=== PATIENT | female | born 1960 | race African-American/Black ===

== ENCOUNTER 2016-10-18 09:32 | Emergency (ER) | payer OTHER, MEDICARE, BC ==
[~2016-10-18] VITALS: Ht 170.2 cm; Wt 86.0 kg
[~2016-10-18 09:32] MED LIST: CALTCHW4 PO; CHOL50006 PO; CYCL-36 PO; DICL50 PO; DOLU1TAB; ENAL2.5 PO; ENAL5TAB98 PO; GLUC10TA3 PO; HYDR-3533 PO; HYDR-3580 PO; LANTUS2P SC; LOTRCRE TOP; MORP1INJ45 PO; PIOG45 PO; TRUV200300; VALT500T OR
[2016-10-18 09:34] VITALS: BP 188/106; PULSE 115; RESP 18; TEMP 98.3; O2SAT 97
[2016-10-18] MEDS ORDERED: LORazepam 2 MG/ML VIAL IV PUSH ONE (09:45)
[2016-10-18] MEDS ORDERED: DIPHTH/TETANUS/ACEL PERTUSSIS (BOOSTER) 0.5 ML VIAL/PFS IM ONE (09:45)
[2016-10-18] MEDS ORDERED: SODIUM CHLORIDE 0.9% FLUSH 5 ML FLUSH IVF PRN (09:45)
[2016-10-18] MEDS ORDERED: MORPHINE SULFATE 4 MG/ML INJ IV ONE (09:45)
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
[2016-10-18] MEDS ORDERED: PERC5TAB12 PO (10:56)
[2016-10-18] MEDS ORDERED: VALA1TAB PO (11:09)
[2016-10-18] MEDS ORDERED: CANA100T PO (11:09)
[2016-10-18] MEDS ORDERED: PIOG45TA3 PO (11:09)
[2016-10-18] MEDS ORDERED: CHOL1TAB16 PO (11:09)
[2016-10-18] MEDS ORDERED: ROSU5 PO (11:09)
[2016-10-18] MEDS ORDERED: ENAL5TAB98 PO (11:09)
[2016-10-18] MEDS ORDERED: CALC1TAB37 PO (11:09)
[2016-10-18] MEDS ORDERED: LANTUS2P SQ (11:09)
[2016-10-18] MEDS ORDERED: GLIP10TA6 PO (11:09)
[2016-10-18] MEDS ORDERED: THERTAB56 PO (11:09)
[2016-10-18] MEDS ORDERED: ELVI1TAB3 PO (11:09)
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
[2016-10-18] MEDS ORDERED: WHEEMIS3 (11:36)
[2016-10-18] MEDS ORDERED: MORPHINE SULFATE 4 MG/ML INJ IV PUSH ONE (12:15)
== END 2016-10-18 14:54 | disposition home or self-care (01) ==
LOC: NEPA 09:32
DX: S92.064A Nondisplaced intraarticular fracture of right calcaneus, initial encounter for closed fracture (principal); S92.325A Nondisplaced fracture of second metatarsal bone, left foot, initial encounter for closed fracture; S92.315A Nondisplaced fracture of first metatarsal bone, left foot, initial encounter for closed fracture; S00.83XA Contusion of other part of head, initial encounter; S00.81XA Abrasion of other part of head, initial encounter; Z79.4 Long term (current) use of insulin; B20 Human immunodeficiency virus [HIV] disease; V43.52XA Car driver injured in collision with other type car in traffic accident, initial encounter; Y93.9 Activity, unspecified; Y92.9 Unspecified place or not applicable; Y99.9 Unspecified external cause status; E11.9 Type 2 diabetes mellitus without complications; I10 Essential (primary) hypertension
CPT/HCPCS: 29515; 70450; 71010; 72125; 73610; 73630; 90471; 90715; 96374; 96375; 96376; 99284; J2060; J2270

== ENCOUNTER 2016-10-25 15:43 | Observation (INO) | payer MEDICARE, BC ==
[~2016-10-25] VITALS: Ht 167.6 cm; Wt 82.0 kg
[~2016-10-25 15:43] MED LIST changes: +CALC1TAB37 PO; -CALTCHW4 PO; +CANA100T PO; +CHOL1TAB16 PO; -CHOL50006 PO; -CYCL-36 PO; -DICL50 PO; -DOLU1TAB; +ELVI1TAB3 PO; -ENAL2.5 PO; +GLIP10TA6 PO; -GLUC10TA3 PO; -HYDR-3533 PO; -HYDR-3580 PO; -LANTUS2P SC; +LANTUS2P SQ; -LOTRCRE TOP; -MORP1INJ45 PO; +PERC5TAB12 PO; -PIOG45 PO; +PIOG45TA3 PO; +ROSU5 PO; +THERTAB56 PO; -TRUV200300; +VALA1TAB PO; -VALT500T OR; +WHEEMIS3
[2016-10-25 15:46] VITALS: BP 138/96; PULSE 92; RESP 20; TEMP 98.4; O2SAT 96
[2016-10-25] MEDS ORDERED: SODIUM CHLORIDE 0.9% FLUSH 5 ML FLUSH IVF PRN (16:00)
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
[2016-10-25 16:43] LABS: AUTOMATED NEUTROPHIL # 2.9 TH/MM3 (1.8-7.7); BASOPHIL % 0.4 % (0.0-2.0); EOSINOPHIL # 0.1 TH/MM3 (0-0.4); EOSINOPHIL % 1.2 % (0.0-4.0); HEMATOCRIT 40.2 % (35.0-46.0); HEMO FLAGS DIFF FINAL; LYMPH % 49.1 % (9.0-44.0); LYMPHOCYTE # 3.3 TH/MM3 (1.0-4.8); MEAN CORPUSCULAR HEMOGLOBIN 30.4 PG (27.0-34.0); MEAN CORPUSCULAR HGB CONC 31.7 % (32.0-36.0); MONO % 5.6 % (0.0-8.0); NEUT % 43.7 % (16.0-70.0); PLATELET COUNT 246 TH/MM3 (150-450); RED BLOOD COUNT 4.19 MIL/MM3 (4.00-5.30); RED CELL DISTRIBUTION WIDTH 14.7 % (11.6-17.2); WHITE BLOOD COUNT 6.7 TH/MM3 (4.0-11.0)
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
[2016-10-25 17:16] LABS: APTT (PATIENT) 23.1 SEC (24.3-30.1); PROTHROMBIN TIME - PATIENT 11.2 SEC (9.8-11.6)
[2016-10-25 17:19] LABS: ANION GAP 9 MEQ/L (5-15); AST (GOT) 45 U/L (15-37); BICARBONATE 26.4 MEQ/L (21.0-32.0); BLOOD UREA NITROGEN 11 MG/DL (7-18); CHLORIDE 104 MEQ/L (98-107); GLOMERULAR FILTRATION RATE 84 ML/MIN (>89); POTASSIUM 4.4 MEQ/L (3.5-5.1); SODIUM (NA) 139 MEQ/L (136-145)
[2016-10-25 17:34] LABS: ALKALINE PHOSPHATASE 77 U/L (45-117); ALT (GPT) 32 U/L (10-53); CREATINE KINASE 1508 U/L (26-192); TOTAL BILIRUBIN ADULT 0.6 MG/DL (0.2-1.0)
[2016-10-25] MEDS ORDERED: HYDROmorphone HCL PF 1 MG/ML VIAL IV PUSH ONE (17:45)
[2016-10-25] MEDS ORDERED: ONDANSETRON HCL 4 MG/2 ML VIAL IV PUSH ONE (17:45)
[2016-10-25 17:47] LABS: CKMB 1.4 NG/ML (0.5-3.6)
[2016-10-25 18:00] VITALS: BP 134/94; PULSE 95; RESP 24; O2SAT 99
[2016-10-25] MEDS ORDERED: IOHEXOL 350 MG/ML 10 ML VIAL (for RAD DIAG) IV ONE (18:01)
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
[2016-10-25] MEDS ORDERED: SODIUM CHLOR 0.9% 1000 ML INJ 1,000 ML IV ONE (18:30)
[2016-10-25 19:08] VITALS: BP 133/74; PULSE 88; RESP 18; O2SAT 94
[2016-10-25 19:09] VITALS: O2SAT 93
[2016-10-25] MEDS ORDERED: NALOXONE HCL 0.4 MG/ML AMP IV PRN (20:00)
[2016-10-25] MEDS ORDERED: SODIUM CHLORIDE 0.9% FLUSH 5 ML FLUSH FLUSH PRN (20:00)
[2016-10-25] MEDS: SODIUM CHLORIDE 0.9% FLUSH 5 ML FLUSH FLUSH SCH (20:47)
[2016-10-25] MEDS: SODIUM CHLOR 0.9% 1000 ML INJ 1,000 ML IV SCH (20:47)
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
[2016-10-26] VITALS (7 sets, daily range): BP systolic 112–128; BP diastolic 65–82; PULSE 84–95; RESP 18–19; TEMP 96.5–98.4; O2SAT 98–100
[2016-10-26] MEDS: ACETAMINOPHEN/CODEINE 300 MG/30 MG TAB PO PRN ×3 (02:59→17:32)
[2016-10-26 07:25] LABS: BICARBONATE 25.9 MEQ/L (21.0-32.0); POTASSIUM 4.4 MEQ/L (3.5-5.1)
[2016-10-26 07:52] LABS: CKMB 0.7 NG/ML (0.5-3.6)
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
[2016-10-26] MEDS: SODIUM CHLORIDE 0.9% FLUSH 5 ML FLUSH FLUSH SCH ×2 (09:00→20:36)
[2016-10-26] MEDS: ENOXAPARIN SODIUM 40 MG/0.4 ML SYRINGE SQ SCH (09:23)
[2016-10-26] MEDS: SODIUM CHLOR 0.9% 1000 ML INJ 1,000 ML IV SCH ×2 (09:25→14:44)
--- NOTE | 2016-10-26 15:32 | EKG ---
Date Performed: 10/25/2016 Time Performed: 15:42:59 PTAGE: 56 years EKG: SINUS TACHYCARDIA BASELINE ARTIFACT ABNORMAL RHYTHM ECG PREVIOUS TRACING 07/26/2016 12.33.44 Compared to previous tracing, the patient is now tachycar dic. DOCTOR: Haley Dukes Interpretating Date/Time 10/26/2016 15:31:41
[2016-10-26] MEDS ORDERED: DEXTROSE 50% IN WATER 50 ML VIAL(D50) IV PUSH PRN (16:30)
[2016-10-26] MEDS ORDERED: GLUCAGON 1 MG/ML VIAL OTHER PRN (16:30)
[2016-10-26] MEDS ORDERED: ERGOCALCIFEROL (VIT D2) 50,000 UNIT CAP PO SCH (17:00)
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
[2016-10-26] MEDS: CALCIUM/VITAMIN D 250 MG/125 U TAB PO SCH (20:36)
[2016-10-26] MEDS: INSULIN NovoLIN REGULAR SUPPLEMENTAL SCALE SQ SCH (20:37)
[2016-10-26] MEDS ORDERED: CALCIUM/VITAMIN D 250 MG/125 U TAB PO SCH (21:00)
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
[2016-10-27 00:22] VITALS: BP 109/70; PULSE 83; RESP 20; TEMP 97.4; O2SAT 100
[2016-10-27] MEDS: SODIUM CHLOR 0.9% 1000 ML INJ 1,000 ML IV SCH ×2 (01:59→11:12)
[2016-10-27 03:56] VITALS: BP 132/75; PULSE 88; RESP 20; TEMP 98; O2SAT 100
[2016-10-27] MEDS: INSULIN NovoLIN REGULAR SUPPLEMENTAL SCALE SQ SCH ×2 (06:33→11:12)
[2016-10-27 07:39] VITALS: BP 119/71; PULSE 87; RESP 18; TEMP 98.4; O2SAT 99
[2016-10-27] MEDS ORDERED: [UNRECOGNIZED DRUG - OTHER] PO SCH (09:00)
[2016-10-27] MEDS ORDERED: ENALAPRIL MALEATE 5 MG TAB PO SCH (09:00)
[2016-10-27] MEDS ORDERED: ATORVASTATIN 10 MG TAB PO SCH (09:00)
[2016-10-27] MEDS: SODIUM CHLORIDE 0.9% FLUSH 5 ML FLUSH FLUSH SCH (09:00)
[2016-10-27] MEDS: ENOXAPARIN SODIUM 40 MG/0.4 ML SYRINGE SQ SCH (09:52)
[2016-10-27 10:23] VITALS: PULSE 100
[2016-10-27] MEDS: CALCIUM/VITAMIN D 250 MG/125 U TAB PO SCH (11:12)
[2016-10-27 11:34] VITALS: BP 135/98; PULSE 81; RESP 22; TEMP 98.2; O2SAT 100
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
[2016-10-27] MEDS ORDERED: MUCI600T PO (13:19)
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
--- NOTE | 2016-10-27 13:24 | HHI.FF ---
Face to Face Verification Diagnosis: (1) Rhabdomyolysis (2) Chest pain (3) Metatarsal fracture (4) Calcaneal fracture (5) Fracture of second metatarsal bone of left foot Physical Therapy Order: Evaluate and Treat, Improve ambulation, Strength and gait training Home Health Nursing Order: Medical education Signs/symptoms of disease process Diabetic education Medication education-adverse effect Nursing assessment with vital signs I have seen patient Candis Hernandez on 10/27/16. My clinical findings support the need for the requested home health care services because: Ltd mobility - disease progression Deconditioned w/ increased weakness High risk of falls I certify that my clinical findings support that this patient is homebound because: Unsteady gait/balance Unsafe to leave home unassisted [id number] bed/chair Brian Vallejo MD Oct 27, 2016 13:24
== END 2016-10-27 15:35 | disposition home or self-care (01) ==
LOC: NEPC 15:43 → NEDA 18:52 → NEPHCDU 21:36
PROVIDERS: ADMIT Internal Medicine; ATTEND Internal Medicine
DX: R07.9 Chest pain, unspecified (principal); M62.82 Rhabdomyolysis; R06.09 Other forms of dyspnea; R05 Cough; R06.02 Shortness of breath; E11.9 Type 2 diabetes mellitus without complications; I10 Essential (primary) hypertension; Z79.4 Long term (current) use of insulin; Z79.899 Other long term (current) drug therapy; C85.90 Non-Hodgkin lymphoma, unspecified, unspecified site; E78.5 Hyperlipidemia, unspecified; S92.322D Displaced fracture of second metatarsal bone, left foot, subsequent encounter for fracture with routine healing; S92.332D Displaced fracture of third metatarsal bone, left foot, subsequent encounter for fracture with routine healing; S92.001D Unspecified fracture of right calcaneus, subsequent encounter for fracture with routine healing; R00.0 Tachycardia, unspecified
CPT/HCPCS: 71010; 71275; 73700; 80048; 80053; 82550; 82552; 82948; 84484; 85025; 85379; 85610; 85730; 93005; 96374; 99285; G0378; J1170; J1650; J2405; J7030; Q9967

== ENCOUNTER 2017-01-30 22:31 | Emergency (ER) | payer MEDICARE, BC ==
[~2017-01-30] VITALS: Ht 180.3 cm; Wt 84.0 kg
[~2017-01-30 22:31] MED LIST changes: +MUCI600T PO; -VALA1TAB PO
[2017-01-30 22:33] VITALS: BP 168/100; PULSE 93; RESP 16; TEMP 98.5; O2SAT 100
--- NOTE | 2017-01-30 23:49 | PD ---
HPI Chief Complaint: ENT Complaint Time Seen by Provider: 23:45 Travel History International Travel<30 days: No Contact w/Intl Traveler<30days: No Traveled to known affect area: No History of Present Illness HPI Patient is a 56-year-old female presenting to emergency for evaluation of muffled hearing in her right ear. Patient states 2 weeks ago she used a Q-tip, since that time she's had pressure and muffled hearing. She denies any headaches, dizziness, nausea. She has no other complaints at this time. PFSH Past Medical History Cancer: Yes Cardiovascular Problems: Yes Chemotherapy: Yes Diabetes: Yes Patient Takes Glucophage: Yes Endocrine: Yes Glaucoma: No Genitourinary: No Hepatitis: No Hiatal Hernia: No Hypertension: Yes Immune Disorder: No Musculoskeletal: Yes (perla. LE fx.) Neurologic: No Psychiatric: No Reproductive: No Respiratory: No Thyroid Disease: No Tetanus Vaccination: < 5 Years ?: Not Menopausal: Yes Past Surgical History Abdominal Surgery: No AICD: No Cardiac Surgery: No Ear Surgery: No Endocrine Surgery: No Eye Surgery: No Genitourinary Surgery: No Gynecologic Surgery: No Joint Replacement: No Oral Surgery: No Pacemaker: No Thoracic Surgery: No Other Surgery: Yes (INSERTION INFUSAPORT) Social History Alcohol Use: Yes (WINE RARELY) Tobacco Use: No Substance Use: No Allergies-Medications (Allergen,Severity, Reaction): Coded Allergies: Penicillin (Verified Allergy, Severe, Itching, 01/30/17) itch and rash Vancomycin (Verified Adverse Reaction, Intermediate, Itching, 01/30/17) Reported Meds & Prescriptions Reported Meds & Active Scripts Active Mucinex ER 12 HR (Guaifenesin) 600 Mg Ewelina 600 Mg PO BID PRN Wheelchair Elevated Leg (Device) 1 Mis Mis 1 Ea .ROUTE DIRECTED Percocet (Oxycodone-Acetaminophen) 5-325 mg Tab 1-2 Tab PO Q6H PRN Reported Vasotec (Enalapril Maleate) 5 Mg Tab 5 Mg PO DAILY Lantus Inj (Insulin Glargine) 100 Unit/Ml Inj 20 Units SQ HS Crestor (Rosuvastatin Calcium) 5 Mg Tab 5 Mg PO DAILY Calcium 600+D (Calcium Carbonate-Cholecalciferol) 600-800 Mg-Unit Tab 1 Tab PO BID Thera (Multiple Vitamin) 1 Tab Tab 1 Tab PO DAILY Vitamin D3 (Cholecalciferol) 50,000 Unit Tab 50,000 Units PO WEEKLY Pioglitazone (Pioglitazone HCl) 45 Mg Tab 45 Mg PO DAILY Invokana (Canagliflozin) 100 Mg Tab 100 Mg PO DAILY Take before 1st meal of day. Glipizide 10 Mg Tab 10 Mg PO BID Take 30 minutes before a meal Genvoya (Wwewmgngtphd-Qllfwwrwmg-Tnduizsbjrfh-Tenofvir) [phone] Mg Tab 1 Tab PO DAILY Review of Systems Except as stated in HPI: all other systems reviewed are Neg HENT: Positive: Earache Physical Exam Narrative GENERAL: Well-nourished, well-developed patient. SKIN: Focused skin assessment warm/dry. HEAD: Normocephalic. EYES: No scleral icterus. No injection or drainage. EARS: Bilateral pinnae and left external canals appear within normal limits. Left tympanic membranes without erythema, dullness or perforation. Right external ear canal occluded with significant cerumen. Cerumen was removed with curette without difficulty. Tympanic membrane was partially visualized without erythema or dullness. NECK: Supple, trachea midline. No JVD or lymphadenopathy. CARDIOVASCULAR: Regular rate and rhythm without murmurs, gallops, or rubs. RESPIRATORY: Breath sounds equal bilaterally. No accessory muscle use. GASTROINTESTINAL: Abdomen soft, non-tender, nondistended. MUSCULOSKELETAL: No cyanosis, or edema. BACK: Nontender without obvious deformity. No CVA tenderness. Data Data Last Documented VS Vital Signs Date Time Temp Pulse Resp B/P Pulse Ox O2 Delivery O2 Flow Rate FiO2 01/30/17 22:33 98.5 93 16 168/100 100 Room Air [facility] Medical Decision Making Medical Screen Exam Complete: Yes Emergency Medical Condition: Yes Interpretation(s) Vital Signs Date Time Temp Pulse Resp B/P Pulse Ox O2 Delivery O2 Flow Rate FiO2 01/30/17 22:33 98.5 93 16 168/100 100 Room Air Differential Diagnosis Otitis media versus otitis externa versus hearing loss versus cerumen impaction versus other Narrative Course Patient's 56-year-old female presenting with muffled hearing and pressure in her right ear after using a Q-tip 2 weeks ago. Patient had significant cerumen in her right external ear canal, the majority of which was removed with a curette and the right tympanic membrane was partially visualized does not appear to have any sign or symptom of infection. Patient reports improvement in her symptoms. She was encouraged to avoid use of Q-tips in the ear canal. She was advised to follow-up with her primary doctor, she was also educated about the use of hetl-rft-zlqmbrs Debrox. She verbalized understanding of these instructions. Patient is stable for discharge. Diagnosis Primary Impression: Impacted cerumen of right ear Referrals: Primary Care Physician Patient Instructions: Cerumen Impaction (ED), General Instructions Additional Instructions: Follow-up with her primary doctor Avoid use of Q-tips in the ear Return to emergency department for any new or worsening symptoms You may use over the counter Debrox as needed and as directed for ear wax removal. Med/Other Pt SpecificInfo: No Change to Meds Disposition: 01 DISCHARGE HOME Condition: Stable Mickie Vargas Jan 30, 2017 23:49
== END 2017-01-31 00:36 | disposition home or self-care (01) ==
LOC: NEPK 22:31
DX: H61.21 Impacted cerumen, right ear (principal); E11.9 Type 2 diabetes mellitus without complications; I10 Essential (primary) hypertension; Z79.4 Long term (current) use of insulin; Z79.899 Other long term (current) drug therapy; Z88.0 Allergy status to penicillin; Z88.5 Allergy status to narcotic agent
CPT/HCPCS: 99282

== ENCOUNTER 2017-08-24 16:26 | Inpatient (IN) | payer MEDICARE, BC ==
[2017-08-24] VITALS (8 sets, daily range): BP systolic 97–117; BP diastolic 70–86; PULSE 86–175; RESP 16–30; TEMP 96.2–97; O2SAT 95–98
[~2017-08-24] VITALS: Ht 172.7 cm; Wt 86.0 kg
[~2017-08-24 16:26] MED LIST changes: -PIOG45TA3 PO; +PIOG45TA5 PO
[2017-08-24] MEDS ORDERED: DILTIAZEM HCL 25 MG/5 ML VIAL IV PUSH ONE (16:45)
[2017-08-24] MEDS: SODIUM CHLOR 0.9% 1000 ML INJ 1,000 ML IV SCH ×3 (16:50→20:19)
[2017-08-24] MEDS ORDERED: niCARdipine INJ 25 MG in SODIUM CHLOR 0.9% 250 ML INJ 240 ML IV ONE (17:00)
--- NOTE | 2017-08-24 17:14 | PD ---
HPI Chief Complaint: Altered Mental Status Time Seen by Provider: 16:43 Travel History International Travel<30 days: No Contact w/Intl Traveler<30days: No Traveled to known affect area: No History of Present Illness HPI 57 year female presents to emergency department via [facility] from home with altered mental status. Patient is unable to give me a history at initial evaluation. PFSH Past Medical History Cancer: Yes Cardiovascular Problems: Yes Chemotherapy: Yes Diabetes: Yes Patient Takes Glucophage: No Endocrine: Yes Glaucoma: No Genitourinary: No Hepatitis: No Hiatal Hernia: No Hypertension: Yes Immune Disorder: No Musculoskeletal: Yes (perla. LE fx.) Neurologic: No Psychiatric: No Reproductive: No Respiratory: No Thyroid Disease: No Menopausal: Yes Past Surgical History Abdominal Surgery: No AICD: No Cardiac Surgery: No Ear Surgery: No Endocrine Surgery: No Eye Surgery: No Genitourinary Surgery: No Gynecologic Surgery: No Joint Replacement: No Oral Surgery: No Pacemaker: No Thoracic Surgery: No Other Surgery: Yes (INSERTION INFUSAPORT) Social History Alcohol Use: Yes Tobacco Use: No Substance Use: No Allergies-Medications (Allergen,Severity, Reaction): Coded Allergies: penicillin G (Unverified Allergy, Severe, Itching, 03/26/17) itch and rash vancomycin (Unverified Adverse Reaction, Intermediate, Itching, 03/26/17) Reported Meds & Prescriptions Reported Meds & Active Scripts Active Mucinex ER 12 HR (Guaifenesin) 600 Mg Ewelina 600 Mg PO BID PRN Wheelchair Elevated Leg (Device) 1 Mis Mis 1 Ea .ROUTE DIRECTED Percocet (Oxycodone-Acetaminophen) 5-325 mg Tab 1-2 Tab PO Q6H PRN Reported Vasotec (Enalapril Maleate) 5 Mg Tab 5 Mg PO DAILY Lantus Inj (Insulin Glargine) 100 Unit/Ml Inj 20 Units SQ HS Crestor (Rosuvastatin Calcium) 5 Mg Tab 5 Mg PO DAILY Calcium 600+D (Calcium Carbonate-Cholecalciferol) 600-800 Mg-Unit Tab 1 Tab PO BID Thera (Multiple Vitamin) 1 Tab Tab 1 Tab PO DAILY Vitamin D3 (Cholecalciferol) 50,000 Unit Tab 50,000 Units PO WEEKLY Pioglitazone (Pioglitazone HCl) 45 Mg Tab 45 Mg PO DAILY Invokana (Canagliflozin) 100 Mg Tab 100 Mg PO DAILY Take before 1st meal of day. Glipizide 10 Mg Tab 10 Mg PO BID Take 30 minutes before a meal Genvoya (Rpjbtslywzxw-Tgjqcgeyrv-Hyqrhanydjre-Tenofvir) [phone] Mg Tab 1 Tab PO DAILY Review of Systems Except as stated in HPI: all other systems reviewed are Neg Physical Exam Narrative GENERAL: Well-developed well-nourished in mild distress, nonverbal SKIN: Warm and dry. HEAD: Atraumatic. Normocephalic. EYES: Pupils equal and round. No scleral icterus. No injection or drainage. ENT: No nasal bleeding or discharge. Mucous membranes pink and moist. NECK: Trachea midline. No JVD. CARDIOVASCULAR: Regular rate and rhythm. RESPIRATORY: No accessory muscle use. Clear to auscultation. Breath sounds equal bilaterally. GASTROINTESTINAL: Abdomen soft, non-tender, nondistended. Hepatic and splenic margins not palpable. MUSCULOSKELETAL: Extremities without clubbing, cyanosis, or edema. No obvious deformities. NEUROLOGICAL: PSYCHIATRIC: Appropriate mood and affect; insight and judgment normal. Data Data Last Documented VS Vital Signs Date Time Temp Pulse Resp B/P (MAP) Pulse Ox O2 Delivery O2 Flow Rate FiO2 08/24/17 19:44 134 16 97/76 (83) 95 Room Air 08/24/17 18:18 97.0 Orders Orders Electrocardiogram (08/24/17 16:43) Complete Blood Count With Diff (08/24/17 16:43) Comprehensive Metabolic Panel (08/24/17 16:43) Creatine Kinase (Cpk) (08/24/17 16:43) Prothrombin Time / Inr (Pt) (08/24/17 16:43) Act Partial Throm Time (Ptt) (08/24/17 16:43) Troponin I (08/24/17 16:43) Urinalysis - C+S If Indicated (08/24/17 16:43) Lactic Acid Sepsis Protocol (08/24/17 16:43) Blood Culture (08/24/17 16:43) Chest, Single Ap (08/24/17 16:43) Sodium Chlor 0.9% 1000 Ml Inj (Ns 1000 M (08/24/17 16:43) Beta Hydroxybutyrate (Acetone) (08/24/17 16:43) Diltiazem Inj (Cardizem Inj) (08/24/17 16:45) Nicardipine Inj (Cardene Inj) (08/24/17 17:00) Urinary Catheter Insert/Apply (08/24/17 16:47) Diltiazem Inj (Cardizem Inj) (08/24/17 17:30) Urine Culture (08/24/17 17:00) Ceftriaxone Inj (Rocephin Inj) (08/24/17 18:30) Ct Brain W/O Iv Contrast(Rout) (08/24/17 ) Insulin Human Regular Inj (Novolin R Inj (08/24/17 19:15) Sodium Chlor 0.9% 1000 Ml Inj (Ns 1000 M (08/24/17 19:15) Drug Screen, Random Urine (08/24/17 19:32) Alcohol (Ethanol) (08/24/17 19:32) Broadcast Operations Manager / Telemetry SEE.Q8H (08/24/17 19:32) Diet Npo (08/25/17 Breakfast) Sodium Chlor 0.9% 1000 Ml Inj (Ns 1000 M (08/24/17 19:32) Dext 5%-Nacl 0.9% 1000 Ml Inj (D5w-Ns 10 (08/24/17 19:32) Insulin Regular (Iv Infusion) (Novolin R (08/24/17 19:45) Potassium Chlor 20 Meq Premix (Kcl 20 Me (08/24/17 19:45) Potassium Chlor 20 Meq Premix (Kcl 20 Me (08/24/17 19:45) Potassium Chlor 20 Meq Premix (Kcl 20 Me (08/24/17 19:45) Potassium Chlor 20 Meq Premix (Kcl 20 Me (08/24/17 19:45) Sodium Bicarbonate 8.4% Inj (Sodium Bica (08/24/17 19:45) Sodium Bicarbonate 8.4% Inj (Sodium Bica (08/24/17 19:45) Sodium Phosphate Inj (Sodium Phosphate I (08/24/17 19:45) Basic Metabolic Panel (Bmp) (08/25/17 00:32) Basic Metabolic Panel (Bmp) (08/25/17 06:32) Basic Metabolic Panel (Bmp) (08/25/17 12:32) Basic Metabolic Panel (Bmp) (08/25/17 18:32) Magnesium (Mg) (08/25/17 00:32) Magnesium (Mg) (08/25/17 06:32) Magnesium (Mg) (08/25/17 12:32) Magnesium (Mg) (08/25/17 18:32) Phosphorus (Po4) (08/25/17 00:32) Phosphorus (Po4) (08/25/17 06:32) Phosphorus (Po4) (08/25/17 12:32) Phosphorus (Po4) (08/25/17 18:32) Admit Order (Ed Use Only) (08/24/17 ) Labs Laboratory Tests Test 08/24/17 17:00 08/24/17 17:05 08/24/17 18:00 Prothrombin Time 11.2 SEC Prothromb Time International Ratio 1.1 RATIO Activated Partial Thromboplast Time 25.6 SEC Urine Color YELLOW Urine Turbidity HAZY Urine pH 5.5 Urine Specific [place] 1.022 Urine Protein 100 mg/dL Urine Glucose (UA) 1000 mg/dL Urine Ketones 10 mg/dL Urine Occult Blood MOD Urine Nitrite NEG Urine Bilirubin NEG Urine Urobilinogen LESS THAN 2.0 MG/DL Urine Leukocyte Esterase SMALL Urine RBC 1 /hpf Urine WBC 8 /hpf Urine Squamous Epithelial Cells 2 /hpf Urine Bacteria OCC /hpf Urine Hyaline Casts 19 /lpf Urine Mucus FEW /lpf Microscopic Urinalysis Comment CATH-CULTURE IND Lactic Acid Level 3.5 mmol/L Urine Opiates Screen NEG Urine Barbiturates Screen NEG Urine Amphetamines Screen NEG Urine Benzodiazepines Screen NEG Urine Cocaine Screen NEG Urine Cannabinoids Screen NEG White Blood Count 9.5 TH/MM3 Red Blood Count 5.13 MIL/MM3 Hemoglobin 16.0 GM/DL Hematocrit 53.3 % Mean Corpuscular Volume 103.7 FL Mean Corpuscular Hemoglobin 31.3 PG Mean Corpuscular Hemoglobin Concent 30.1 % Red Cell Distribution Width 17.1 % Platelet Count 142 TH/MM3 Mean Platelet Volume 12.0 FL Neutrophils (%) (Auto) 81.3 % Lymphocytes (%) (Auto) 13.7 % Monocytes (%) (Auto) 4.8 % Eosinophils (%) (Auto) 0.0 % Basophils (%) (Auto) 0.2 % Neutrophils # (Auto) 7.7 TH/MM3 Lymphocytes # (Auto) 1.3 TH/MM3 Monocytes # (Auto) 0.5 TH/MM3 Eosinophils # (Auto) 0.0 TH/MM3 Basophils # (Auto) 0.0 TH/MM3 CBC Comment AUTO DIFF Differential Comment AUTO DIFF CONFIRMED Platelet Morphology Comment ENLARGED Blood Urea Nitrogen 86 MG/DL Creatinine 2.98 MG/DL Random Glucose 965 MG/DL Total Protein 10.9 GM/DL Albumin 3.4 GM/DL Calcium Level 8.9 MG/DL Alkaline Phosphatase 107 U/L Aspartate Amino Transf (AST/SGOT) 21 U/L Alanine Aminotransferase (ALT/SGPT) 24 U/L Total Bilirubin 0.5 MG/DL Sodium Level 142 MEQ/L Potassium Level 5.8 MEQ/L Chloride Level 102 MEQ/L Carbon Dioxide Level 11.4 MEQ/L Anion Gap 29 MEQ/L Estimat Glomerular Filtration Rate 20 ML/MIN Total Creatine Kinase 166 U/L Troponin I 0.02 NG/ML Ethyl Alcohol Level LESS THAN 3 MG/DL B-Hydroxybutyrate 13.21 MMOL/L [facility] Medical Decision Making Medical Screen Exam Complete: Yes Emergency Medical Condition: Yes Differential Diagnosis DKA, UTI, AMS Narrative Course 57-year-old female with a history of diabetes mellitus presents to the emergency department obtunded and altered. She is unable to provide initial history. Upon arrival, patient was found to be in A. fib with RVR at a rate between 150 and 200BPM. In addition patient was nonverbal and responsive only to pain (GCS 11). Patient was able to maintain her airway appropriately and her oxygen saturation remained 97%. Patient was administered 2 L normal saline along with Cardizem 0.25 mg/kg loading mild improvement in her heart rate but was not sustained. In addition, she became verbal and was able to answer limited questions (GCS 12). Cardizem drip was administered and titrated according to heart rate as she remained in the 140-160BPM range. At 15mg/hr, BP was found low at 97/76 and so the Cardizem was decreased to 5mg/hr and labetalol 5mg administered with significant decrease of heart rate to 90-100. In addition, BP improved to 117/ 83. She denies any cardiac history and states she has been taking her medications regularly. States that her symptoms have been going on for several days. Insulin was held until potassium returned on chemistry. Potassium 5.8. Patient administered 7.5 units regular insulin IV. Note that the patient takes an SGLT2 inhibitor (Invokana) which likely contributes to her glycosuria. Because of patient symptoms, I am concerned that a urinary tract infection has contributed to her condition. Rocephin 1 g IV administered in the emergency department today. Last Impressions Chest X-Ray 08/24/17 1643 Signed Impressions: Service Date/Time: Thursday, August 24, 2017 17:48 - CONCLUSION: No acute disease. Jose Daniel Teresa MD Head CT 08/24/17 0000 Signed Impressions: Service Date/Time: Thursday, August 24, 2017 19:17 - CONCLUSION: Negative noncontrast head CT. Italo Anguiano MD Laboratory Tests Test 08/24/17 17:00 08/24/17 17:05 08/24/17 18:00 Prothrombin Time 11.2 SEC Prothromb Time International Ratio 1.1 RATIO Activated Partial Thromboplast Time 25.6 SEC Urine Color YELLOW Urine Turbidity HAZY Urine pH 5.5 Urine Specific [place] 1.022 Urine Protein 100 mg/dL Urine Glucose (UA) 1000 mg/dL Urine Ketones 10 mg/dL Urine Occult Blood MOD Urine Nitrite NEG Urine Bilirubin NEG Urine Urobilinogen LESS THAN 2.0 MG/DL Urine Leukocyte Esterase SMALL Urine RBC 1 /hpf Urine WBC 8 /hpf Urine Squamous Epithelial Cells 2 /hpf Urine Bacteria OCC /hpf Urine Hyaline Casts 19 /lpf Urine Mucus FEW /lpf Microscopic Urinalysis Comment CATH-CULTURE IND Urine Opiates Screen NEG Urine Barbiturates Screen NEG Urine Amphetamines Screen NEG Urine Benzodiazepines Screen NEG Urine Cocaine Screen NEG Urine Cannabinoids Screen NEG White Blood Count 9.5 TH/MM3 Red Blood Count 5.13 MIL/MM3 Hemoglobin 16.0 GM/DL Hematocrit 53.3 % Mean Corpuscular Volume 103.7 FL Mean Corpuscular Hemoglobin 31.3 PG Mean Corpuscular Hemoglobin Concent 30.1 % Red Cell Distribution Width 17.1 % Platelet Count 142 TH/MM3 Mean Platelet Volume 12.0 FL Neutrophils (%) (Auto) 81.3 % Lymphocytes (%) (Auto) 13.7 % Monocytes (%) (Auto) 4.8 % Eosinophils (%) (Auto) 0.0 % Basophils (%) (Auto) 0.2 % Neutrophils # (Auto) 7.7 TH/MM3 Lymphocytes # (Auto) 1.3 TH/MM3 Monocytes # (Auto) 0.5 TH/MM3 Eosinophils # (Auto) 0.0 TH/MM3 Basophils # (Auto) 0.0 TH/MM3 CBC Comment AUTO DIFF Differential Comment AUTO DIFF CONFIRMED Platelet Morphology Comment ENLARGED Blood Urea Nitrogen 86 MG/DL Creatinine 2.98 MG/DL Random Glucose 965 MG/DL Total Protein 10.9 GM/DL Albumin 3.4 GM/DL Calcium Level 8.9 MG/DL Alkaline Phosphatase 107 U/L Aspartate Amino Transf (AST/SGOT) 21 U/L Alanine Aminotransferase (ALT/SGPT) 24 U/L Total Bilirubin 0.5 MG/DL Sodium Level 142 MEQ/L Potassium Level 5.8 MEQ/L Chloride Level 102 MEQ/L Carbon Dioxide Level 11.4 MEQ/L Anion Gap 29 MEQ/L Estimat Glomerular Filtration Rate 20 ML/MIN Total Creatine Kinase 166 U/L Troponin I 0.02 NG/ML Ethyl Alcohol Level LESS THAN 3 MG/DL B-Hydroxybutyrate 13.21 MMOL/L Upon transfer to the ICU, patient is able to answer my questions. She is much more aware of her surroundings and has a GCS 15. I spoke with Dr. Samuel who requested DKA protocol and tox screen. B hydroxybutyrate 13.21, Glucose 965. Cardiac labs negative. Pt will be admitted to ICU to Dr. Nicolas. Sepsis Criteria Sepsis Criteria (SIRS+source): Infect source susp/known Diagnosis Primary Impression: UTI (urinary tract infection) Qualified Codes: N30.00 - Acute cystitis without hematuria Additional Impressions: Hyperglycemia Altered mental status Qualified Codes: R40.0 - Somnolence Lactic acidosis DKA (diabetic ketoacidoses) Qualified Codes: E11.10 - Type 2 diabetes mellitus with ketoacidosis without coma Admitting Information Admitting Physician Requests: Admit Condition: Yuliet Ruano Aug 24, 2017 17:14
[2017-08-24] MEDS ORDERED: DILTIAZEM INJ 125 MG in SODIUM CHLORIDE 0.9% INJ 100 ML IV PRN (17:30)
[2017-08-24 17:31] LABS: AUTOMATED NEUTROPHIL # 7.7 TH/MM3 (1.8-7.7); BASOPHIL % 0.2 % (0.0-2.0); HEMATOCRIT 53.3 % (35.0-46.0); LYMPH % 13.7 % (9.0-44.0); LYMPHOCYTE # 1.3 TH/MM3 (1.0-4.8); MEAN CELL VOLUME 103.7 FL (80.0-100.0); MEAN CORPUSCULAR HEMOGLOBIN 31.3 PG (27.0-34.0); MEAN CORPUSCULAR HGB CONC 30.1 % (32.0-36.0); MONO % 4.8 % (0.0-8.0); MONOCYTE # 0.5 TH/MM3 (0-0.9); NEUT % 81.3 % (16.0-70.0); PLATELET COUNT 142 TH/MM3 (150-450); RED BLOOD COUNT 5.13 MIL/MM3 (4.00-5.30); RED CELL DISTRIBUTION WIDTH 17.1 % (11.6-17.2); WHITE BLOOD COUNT 9.5 TH/MM3 (4.0-11.0)
[2017-08-24 17:48] LABS: BACTERIA, URINE OCC /hpf; BILIRUBIN, URINE NEG (NEG); BLOOD, URINE MOD (NEG); GLUCOSE,URINE 1000 mg/dL (NEG); HYALINE CAST, URINE 19 /lpf (RARE); INTERNATIONAL NORMALIZED RATIO 1.1 RATIO; KETONE, URINE 10 mg/dL (NEG); MUCUS URINE FEW /lpf (OCC); NITRITE,URINE NEG (NEG); PH, URINE 5.5 (5.0-8.5); PROTHROMBIN TIME - PATIENT 11.2 SEC (9.8-11.6); SQUAMOUS EPITHELIAL CELL URINE 2 /hpf (0-5); URINE COLOR YELLOW (YELLW/STRAW); URINE LEUKOCYTE ESTERASE SMALL (NEG)
[2017-08-24 18:09] LABS: LACTIC ACID SEPSIS PROTOCOL 3.5 mmol/L (0.4-2.0)
--- NOTE | 2017-08-24 18:16 | RADRPT ---
EXAM DATE/TIME: 08/24/2017 17:48 [facility] COMPARISON: CHEST SINGLE AP, October 25, 2016, 16:08. INDICATIONS : Shortness of breath MEDICAL HISTORY : Non-responsive. SURGICAL HISTORY : Non-responsive. ENCOUNTER: Initial ACUITY: 1 day PAIN SCORE: Non-responsive. LOCATION: Bilateral chest FINDINGS: A single view of the chest demonstrates the lungs to be symmetrically aerated without evidence of mas s, infiltrate or effusion. The cardiomediastinal contours are unremarkable. Osseous structures are intact. CONCLUSION: No acute disease. Jose Daniel Teresa MD on August 24, 2017 at 18:13 Board Certified Radiologist. This report was verified electronically.
[2017-08-24] MEDS ORDERED: cefTRIAXone INJ 1,000 MG in SODIUM CHLORIDE 0.9% INJ 100 ML IV ONE (18:30)
--- NOTE | 2017-08-24 18:59 | PD ---
Physical Exam Date Seen by Provider: Aug 24, 2017 Time Seen by Provider: 18:00 Narrative I, Dr. Quinonez, have reviewed the advance practice practitioner's documentation and am in agreement, met with the patient face to face, made the diagnosis, and the medical decision making was done by me. *My assessment and Findings: Patient seen initially with PA, please see PA note for further details. She is arriving from home brought in by family due to altered mental status, was found to be fairly tachycardic on initial evaluation. She is not able to give me much further history. Her blood sugars a reading fairly high. GENERAL: Well-developed middle age female patient currently in moderate distress. Lethargic. SKIN: Focused skin assessment warm/dry. HEAD: Atraumatic. Normocephalic. EYES: Pupils equal and round. No scleral icterus. No injection or drainage. ENT: No nasal bleeding or discharge. Mucous membranes pink and moist. NECK: Trachea midline. No JVD. CARDIOVASCULAR: Fast and irregularly irregular. No murmur appreciated. RESPIRATORY: No accessory muscle use. Clear to auscultation. Breath sounds equal bilaterally. GASTROINTESTINAL: Abdomen soft, non-tender, nondistended. Hepatic and splenic margins not palpable. MUSCULOSKELETAL: No obvious deformities. No clubbing. No cyanosis. No edema. NEUROLOGICAL: Awake and alert. No obvious cranial nerve deficits. Motor grossly within normal limits. Normal speech. PSYCHIATRIC: Appropriate mood and affect; insight and judgment normal. Data Data Last Documented VS Vital Signs Date Time Temp Pulse Resp B/P (MAP) Pulse Ox O2 Delivery O2 Flow Rate FiO2 08/24/17 18:19 161 109/68 08/24/17 18:18 97.0 08/24/17 16:46 18 95 Room Air Orders Orders Electrocardiogram (08/24/17 16:43) Complete Blood Count With Diff (08/24/17 16:43) Comprehensive Metabolic Panel (08/24/17 16:43) Creatine Kinase (Cpk) (08/24/17 16:43) Prothrombin Time / Inr (Pt) (08/24/17 16:43) Act Partial Throm Time (Ptt) (08/24/17 16:43) Troponin I (08/24/17 16:43) Urinalysis - C+S If Indicated (08/24/17 16:43) Lactic Acid Sepsis Protocol (08/24/17 16:43) Blood Culture (08/24/17 16:43) Chest, Single Ap (08/24/17 16:43) Sodium Chlor 0.9% 1000 Ml Inj (Ns 1000 M (08/24/17 16:43) Beta Hydroxybutyrate (Acetone) (08/24/17 16:43) Diltiazem Inj (Cardizem Inj) (08/24/17 16:45) Nicardipine Inj (Cardene Inj) (08/24/17 17:00) Urinary Catheter Insert/Apply (08/24/17 16:47) Diltiazem Inj (Cardizem Inj) (08/24/17 17:30) Urine Culture (08/24/17 17:00) Ceftriaxone Inj (Rocephin Inj) (08/24/17 18:30) Ct Brain W/O Iv Contrast(Rout) (08/24/17 ) Labs Laboratory Tests Test 08/24/17 17:00 08/24/17 17:05 08/24/17 18:00 Prothrombin Time 11.2 SEC Prothromb Time International Ratio 1.1 RATIO Activated Partial Thromboplast Time 25.6 SEC Urine Color YELLOW Urine Turbidity HAZY Urine pH 5.5 Urine Specific [place] 1.022 Urine Protein 100 mg/dL Urine Glucose (UA) 1000 mg/dL Urine Ketones 10 mg/dL Urine Occult Blood MOD Urine Nitrite NEG Urine Bilirubin NEG Urine Urobilinogen LESS THAN 2.0 MG/DL Urine Leukocyte Esterase SMALL Urine RBC 1 /hpf Urine WBC 8 /hpf Urine Squamous Epithelial Cells 2 /hpf Urine Bacteria OCC /hpf Urine Hyaline Casts 19 /lpf Urine Mucus FEW /lpf Microscopic Urinalysis Comment CATH-CULTURE IND Lactic Acid Level 3.5 mmol/L White Blood Count 9.5 TH/MM3 Red Blood Count 5.13 MIL/MM3 Hemoglobin 16.0 GM/DL Hematocrit 53.3 % Mean Corpuscular Volume 103.7 FL Mean Corpuscular Hemoglobin 31.3 PG Mean Corpuscular Hemoglobin Concent 30.1 % Red Cell Distribution Width 17.1 % Platelet Count 142 TH/MM3 Mean Platelet Volume 12.0 FL Neutrophils (%) (Auto) 81.3 % Lymphocytes (%) (Auto) 13.7 % Monocytes (%) (Auto) 4.8 % Eosinophils (%) (Auto) 0.0 % Basophils (%) (Auto) 0.2 % Neutrophils # (Auto) 7.7 TH/MM3 Lymphocytes # (Auto) 1.3 TH/MM3 Monocytes # (Auto) 0.5 TH/MM3 Eosinophils # (Auto) 0.0 TH/MM3 Basophils # (Auto) 0.0 TH/MM3 CBC Comment AUTO DIFF Differential Comment AUTO DIFF CONFIRMED Platelet Morphology Comment ENLARGED MDM Medical Record Reviewed: Yes Supervised Visit with CHARLI: Yes Interpretation(s) EKG shows A. fib with rapid ventricular response at a rate of 170 bpm. Laboratory Tests Test 08/24/17 17:00 08/24/17 17:05 08/24/17 18:00 Urine Turbidity HAZY (CLEAR) Urine Protein 100 mg/dL (NEG-TRACE) Urine Glucose (UA) 1000 mg/dL (NEG) Urine Ketones 10 mg/dL (NEG) Urine Occult Blood MOD (NEG) Urine Leukocyte Esterase SMALL (NEG) Urine WBC 8 /hpf (0-5) Urine Bacteria OCC /hpf (NONE) Urine Mucus FEW /lpf (OCC) Lactic Acid Level 3.5 mmol/L (0.4-2.0) Hemoglobin 16.0 GM/DL (11.6-15.3) Hematocrit 53.3 % (35.0-46.0) Mean Corpuscular Volume 103.7 FL (80.0-100.0) Mean Corpuscular Hemoglobin Concent 30.1 % (32.0-36.0) Platelet Count 142 TH/MM3 (150-450) Mean Platelet Volume 12.0 FL (7.0-11.0) Neutrophils (%) (Auto) 81.3 % (16.0-70.0) Platelet Morphology Comment ENLARGED (NORMAL) Last 24 hours Impressions Chest X-Ray 08/24/17 1643 Signed Impressions: Service Date/Time: Thursday, August 24, 2017 17:48 - CONCLUSION: No acute disease. Jose Daniel Teresa MD Differential Diagnosis DKA versus dehydration versus metabolic issues versus dysrhythmias versus sepsis Narrative Course Patient was initiated on IV fluids, lab work was sent and there is concern about possible underlying sepsis considering her condition, IV antibiotics were initiated. Initial EKG shows A. fib with rapid ventricular response and Cardizem was given in the ER for rate control. Planning to admit the patient to for further critical care. Awaiting metabolic panel for further insulin therapy as well as electrolyte therapy. Aggregate critical care time was 30 minutes. Time to perform other separately billable procedures was not included in the critical care time. My time did not include minutes spent treating any other patients simultaneously or on activities that did not directly contribute to the patient's treatment. The services I provided to this patient were to treat and/or prevent clinically significant deterioration that could result in: Worsening dysrhythmias, septic shock, DKA, I provided critical care services requiring my management, as noted below: Chart data review, documentation time, medication orders and management, vital sign assessments/reviewing monitor data, ordering and reviewing lab tests, ordering and interpreting/reviewing x-rays and diagnostic studies, care of the patient and discussion of the patient with the admitting physicians. Diagnosis Primary Impression: UTI (urinary tract infection) Qualified Codes: N30.00 - Acute cystitis without hematuria Additional Impressions: Hyperglycemia Altered mental status Qualified Codes: R40.0 - Somnolence Lactic acidosis Admitting Information Admitting Physician Requests: Admit Condition: Good Chano Quinonez MD Aug 24, 2017 18:59
[2017-08-24 19:00] LABS: ALBUMIN 3.4 GM/DL (3.4-5.0); AST (GOT) 21 U/L (15-37); BICARBONATE 11.4 MEQ/L (21.0-32.0); BLOOD UREA NITROGEN 86 MG/DL (7-18); CALCIUM 8.9 MG/DL (8.5-10.1); CHLORIDE 102 MEQ/L (98-107); CREATININE 2.98 MG/DL (0.50-1.00); GLOMERULAR FILTRATION RATE 20 ML/MIN (>89); SODIUM (NA) 142 MEQ/L (136-145)
[2017-08-24 19:01] LABS: ALT (GPT) 24 U/L (10-53); TOTAL BILIRUBIN ADULT 0.5 MG/DL (0.2-1.0); TOTAL PROTEIN 10.9 GM/DL (6.4-8.2)
[2017-08-24 19:05] LABS: GLUCOSE,RANDOM 965 MG/DL (74-106)
[2017-08-24 19:12] LABS: ALKALINE PHOSPHATASE 107 U/L (45-117); TROPONIN I 0.02 NG/ML (0.02-0.05)
[2017-08-24] MEDS ORDERED: INSULIN HUMAN REGULAR 1,000 UNITS/10 ML VIAL IV PUSH ONE (19:15)
[2017-08-24] MEDS ORDERED: SODIUM CHLOR 0.9% 1000 ML INJ 1,000 ML IV ONE (19:15)
[2017-08-24] MEDS ORDERED: POTASSIUM CHLOR 20 MEQ PREMIX 100 ML IV PRN ×4 (19:45)
[2017-08-24] MEDS ORDERED: SODIUM PHOSPHATE INJ 15 MMOL in SODIUM CHLORIDE 0.9% INJ 100 ML IV PRN (19:45)
[2017-08-24] MEDS ORDERED: SODIUM BICARBONATE 8.4% SOLN 50 MEQ/50 ML VIAL IV PUSH PRN ×2 (19:45)
--- NOTE | 2017-08-24 19:50 | RADRPT ---
EXAM DATE/TIME: 08/24/2017 19:17 [facility] COMPARISON: CT BRAIN W/O CONTRAST, October 18, 2016, 10:40. INDICATIONS : Altered mental status. RADIATION DOSE: 56.35 CTDIvol (mGy) MEDICAL HISTORY : Hypertension. diabetes, skin cancer, HIV SURGICAL HISTORY : None. ENCOUNTER: Initial ACUITY: 1 day PAIN SCALE: Non-responsive LOCATION: Bilateral head TECHNIQUE: Multiple contiguous axial images were obtained of the head. Using automated exposure control and adj ustment of the mA and/or kV according to patient size, radiation dose was kept as low as reasonably a chievable to obtain optimal diagnostic quality images. DICOM format image data is available electro nically for review and comparison. FINDINGS: CEREBRUM: The ventricles are normal for age. No evidence of midline shift, mass lesion, hemorrhage or acute in farction. No extra-axial fluid collections are seen. POSTERIOR FOSSA: The cerebellum and brainstem are intact. The 4th ventricle is midline. The cerebellopontine angle i s unremarkable. EXTRACRANIAL: The visualized portion of the orbits is intact. SKULL: The calvaria is intact. No evidence of skull fracture. CONCLUSION: Negative noncontrast head CT. Italo Anguiano MD on August 24, 2017 at 19:46 Board Certified Radiologist. This report was verified electronically.
[2017-08-24] MEDS ORDERED: LABETALOL HCL 100 MG/20 ML VIAL IV PUSH ONE (20:00)
[2017-08-24] MEDS ORDERED: SODIUM CHLOR 0.9% 1000 ML INJ 1,000 ML IV STA (20:30)
[2017-08-24] MEDS ORDERED: SODIUM CHLORIDE 0.9% FLUSH 10 ML FLUSH IV FLUSH PRN (20:45)
[2017-08-24] MEDS ORDERED: BISACODYL 10 MG SUPP RECTAL PRN (20:45)
[2017-08-24] MEDS ORDERED: LACTULOSE SYRUP 20 GM/30 ML CUP PO PRN (20:45)
[2017-08-24] MEDS ORDERED: MAGNESIUM HYDROXIDE SUSP 30 ML CUP PO PRN (20:45)
[2017-08-24] MEDS ORDERED: ACETAMINOPHEN 325 MG TAB PO PRN (20:45)
[2017-08-24] MEDS ORDERED: ONDANSETRON HCL 4 MG/2 ML VIAL IV PUSH PRN (20:45)
[2017-08-24] MEDS ORDERED: SENNOSIDES 8.6 MG TAB PO PRN (20:45)
[2017-08-24] MEDS ORDERED: DIGOXIN 0.5 MG/2 ML VIAL IV PUSH ONE (20:45)
[2017-08-24] MEDS ORDERED: MISCELLANEOUS NURSING INFORMATION XX SCH (20:45)
[2017-08-24] MEDS ORDERED: CHLORHEXIDINE GLUCONATE 2 % 1 PACK (2 CLOTHS) TOP PRN (20:45)
[2017-08-24] MEDS: INSULIN REGULAR (IV INFUSION) 100 UNITS in SODIUM CHLORIDE 0.9% INJ 99 ML IV PRN (20:52)
--- NOTE | 2017-08-24 21:12 | HHI.HP ---
[facility] Service Critical Care Medicine Primary Care Physician Cr Brown MD Admission Diagnosis DKA, AMS Diagnosis: Travel History International Travel<30 Days: No Contact w/Intl Traveler <30 Da: No Traveled to Known Affected Are: No Sepsis Criteria SIRS Criteria (2 or more): Heart rate over 90 History of Present Illness HPI 57 year female presents to emergency department via [facility] from home with altered mental status. Patient is unable to give me a history at initial evaluation. 57-year-old female with a medical history significant for diabetes mellitus who was brought to the ER by [facility] with altered mental status. Details of urination unavailable as no family members available and patient to disoriented to give history. She was noted to be extremely hyperglycemic with blood glucoses in the 1900 range with severe metabolic acidosis and elevated beta hydroxybutyrate consistent with DKA. Patient was also noted to be in A. fib with RVR. Head CT done in the ER was negative for any bleed. She received IV insulin was started on a Cardizem drip for rate control and received 3 L normal saline bolus. Patient was accepted for admission by critical care medicine service. When I evaluated the patient in the ER she was drowsy though arousable , knew she was in the hospital however could not give me details of her history. She denied any chest pain or shortness of breath. History PFSH Past Medical History Cancer: Yes Cardiovascular Problems: Yes Chemotherapy: Yes Diabetes: Yes Patient Takes Glucophage: No Endocrine: Yes Glaucoma: No Genitourinary: No Hepatitis: No Hiatal Hernia: No Hypertension: Yes Immune Disorder: No Musculoskeletal: Yes (perla. LE fx.) Neurologic: No Psychiatric: No Reproductive: No Respiratory: No Thyroid Disease: No Menopausal: Yes Past Surgical History Abdominal Surgery: No AICD: No Cardiac Surgery: No Ear Surgery: No Endocrine Surgery: No Eye Surgery: No Genitourinary Surgery: No Gynecologic Surgery: No Joint Replacement: No Oral Surgery: No Pacemaker: No Thoracic Surgery: No Other Surgery: Yes (INSERTION INFUSAPORT) Social History Alcohol Use: Yes Tobacco Use: No Substance Use: No Allergies-Medications Allergies-Medications (Allergen,Severity, Reaction): Coded Allergies: penicillin G (Unverified Allergy, Severe, Itching, 03/26/17) itch and rash vancomycin (Unverified Adverse Reaction, Intermediate, Itching, 03/26/17) Reported Meds & Prescriptions Reported Meds & Active Scripts Active Mucinex ER 12 HR (Guaifenesin) 600 Mg Ewelina 600 Mg PO BID PRN Wheelchair Elevated Leg (Device) 1 Mis Mis 1 Ea .ROUTE DIRECTED Percocet (Oxycodone-Acetaminophen) 5-325 mg Tab 1-2 Tab PO Q6H PRN Reported Vasotec (Enalapril Maleate) 5 Mg Tab 5 Mg PO DAILY Lantus Inj (Insulin Glargine) 100 Unit/Ml Inj 20 Units SQ HS Crestor (Rosuvastatin Calcium) 5 Mg Tab 5 Mg PO DAILY Calcium 600+D (Calcium Carbonate-Cholecalciferol) 600-800 Mg-Unit Tab 1 Tab PO BID Thera (Multiple Vitamin) 1 Tab Tab 1 Tab PO DAILY Vitamin D3 (Cholecalciferol) 50,000 Unit Tab 50,000 Units PO WEEKLY Pioglitazone (Pioglitazone HCl) 45 Mg Tab 45 Mg PO DAILY Invokana (Canagliflozin) 100 Mg Tab 100 Mg PO DAILY Take before 1st meal of day. Glipizide 10 Mg Tab 10 Mg PO BID Take 30 minutes before a meal Genvoya (Oaahmrrydtnd-Vicyeudeoe-Dvusgzqwemcz-Tenofvir) [phone] Mg Tab 1 Tab PO DAILY Physical Exam Vital Signs Vital Signs Date Time Temp Pulse Resp B/P (MAP) Pulse Ox O2 Delivery O2 Flow Rate FiO2 08/24/17 20:37 97 Nasal Cannula 4.00 08/24/17 20:31 96.2 98 16 117/83 (94) 97 08/24/17 19:44 134 16 97/76 (83) 95 Room Air 08/24/17 18:19 161 109/68 08/24/17 18:18 97.0 08/24/17 17:58 139 124/56 08/24/17 17:44 180 129/86 08/24/17 16:46 175 18 116/86 (96) 95 Room Air 08/24/17 16:36 164 24 116/86 (96) 95 Physical Exam HEENT/Neuro: No pallor or icterus, tongue dry, CECE, Drowsy, arousable, knows she is in hospital, verbalizes her name, otherwise disoriented, confused, nonfocal grossly, moving all 4 extremities. Pupils 3mm bilat, reactive actively to light Neck: No JVD Chest/pulmonary: CTA bilaterally Cardiovascular: S1-S2 irregularly irregular no gallop or murmur GI/abdomen: Soft, nontender, bowel sounds present Extremities: Warm bilaterally, no edema Laboratory Laboratory Tests Test 08/24/17 17:00 08/24/17 17:05 08/24/17 18:00 08/24/17 19:58 Prothrombin Time 11.2 Prothromb Time International Ratio 1.1 Activated Partial Thromboplast Time 25.6 Urine Color YELLOW Urine Turbidity HAZY Urine pH 5.5 Urine Specific [place] 1.022 Urine Protein 100 Urine Glucose (UA) 1000 Urine Ketones 10 Urine Occult Blood MOD Urine Nitrite NEG Urine Bilirubin NEG Urine Urobilinogen LESS THAN 2.0 Urine Leukocyte Esterase SMALL Urine RBC 1 Urine WBC 8 Urine Squamous Epithelial Cells 2 Urine Bacteria OCC Urine Hyaline Casts 19 Urine Mucus FEW Microscopic Urinalysis Comment CATH-CULTURE IND Lactic Acid Level 3.5 3.0 Urine Opiates Screen NEG Urine Barbiturates Screen NEG Urine Amphetamines Screen NEG Urine Benzodiazepines Screen NEG Urine Cocaine Screen NEG Urine Cannabinoids Screen NEG White Blood Count 9.5 Red Blood Count 5.13 Hemoglobin 16.0 Hematocrit 53.3 Mean Corpuscular Volume 103.7 Mean Corpuscular Hemoglobin 31.3 Mean Corpuscular Hemoglobin Concent 30.1 Red Cell Distribution Width 17.1 Platelet Count 142 Mean Platelet Volume 12.0 Neutrophils (%) (Auto) 81.3 Lymphocytes (%) (Auto) 13.7 Monocytes (%) (Auto) 4.8 Eosinophils (%) (Auto) 0.0 Basophils (%) (Auto) 0.2 Neutrophils # (Auto) 7.7 Lymphocytes # (Auto) 1.3 Monocytes # (Auto) 0.5 Eosinophils # (Auto) 0.0 Basophils # (Auto) 0.0 CBC Comment AUTO DIFF Differential Comment AUTO DIFF CONFIRMED Platelet Morphology Comment ENLARGED Blood Urea Nitrogen 86 Creatinine 2.98 Random Glucose 965 Total Protein 10.9 Albumin 3.4 Calcium Level 8.9 Alkaline Phosphatase 107 Aspartate Amino Transf (AST/SGOT) 21 Alanine Aminotransferase (ALT/SGPT) 24 Total Bilirubin 0.5 Sodium Level 142 Potassium Level 5.8 Chloride Level 102 Carbon Dioxide Level 11.4 Anion Gap 29 Estimat Glomerular Filtration Rate 20 Total Creatine Kinase 166 Troponin I 0.02 Ethyl Alcohol Level LESS THAN 3 B-Hydroxybutyrate 13.21 Test 08/24/17 20:23 Blood Gas Puncture Site RT RADIAL Blood Gas Patient Temperature 98.6 Blood Gas HCO3 7 Blood Gas Base Excess -20.4 Blood Gas Oxygen Saturation 91 Arterial Blood pH 7.15 Arterial Blood Partial Pressure CO2 20 Arterial Blood Partial Pressure O2 84 Arterial Blood Oxygen Content 17.9 Arterial Blood Carboxyhemoglobin 1.1 Arterial Blood Methemoglobin 0.9 Blood Gas Hemoglobin 13.9 Oxygen Delivery Device NASAL CANNULA Blood Gas Liter Flow 4 Date/Time Source Procedure Growth Status 08/24/17 17:00 Urine Catheterized Urine Urine Culture Pending Worksheet Result Diagram: 08/24/17 1705 08/24/17 1800 Caprini VTE Risk Assessment Caprini VTE Risk Assessment: Mod/High Risk (score >= 2) Caprini Risk Assessment Model Point Value = 1 Point Value = 2 Point Value = 3 Point Value = 5 Age 41-60 Minor surgery BMI > 25 kg/m2 Swollen legs Varicose veins or History of unexplained or recurrent spontaneous Oral contraceptives or hormone replacement Sepsis (< 1 month) Serious lung disease, including pneumonia (< 1 month) Abnormal pulmonary function Acute myocardial infarction Congestive heart failure (< 1 month) History of inflammatory bowel disease Medical patient at bed rest Age 61-74 Arthroscopic surgery Major open surgery (> 45 min) Laparoscopic surgery (> 45 min) Malignancy Confined to bed (> 72 hours) Immobilizing plaster cast Central venous access Age >= 75 History of VTE Family history of VTE Factor V Leiden Prothrombin [id number] Lupus anticoagulant Anticardiolipin antibodies Elevated serum homocysteine Heparin-induced thrombocytopenia Other congenital or acquired thrombophilia Stroke (< 1 month) Elective arthroplasty Hip, pelvis, or leg fracture Acute spinal cord injury (< 1 month) Prophylaxis Regimen Total Risk Factor Score Risk Level Prophylaxis Regimen 0-1 Low Early ambulation 2 Moderate Order ONE of the following: *Sequential Compression Device (SCD) *Heparin 5000 units SQ BID 3-4 Higher Order ONE of the following medications: *Heparin 5000 units SQ TID *Enoxaparin/Lovenox 40 mg SQ daily (WT < 150 kg, CrCl > 30 mL/min) *Enoxaparin/Lovenox 30 mg SQ daily (WT < 150 kg, CrCl > 10-29 mL/min) *Enoxaparin/Lovenox 30 mg SQ BID (WT < 150 kg, CrCl > 30 mL/min) AND/OR *Sequential Compression Device (SCD) 5 or more Highest Order ONE of the following medications: *Heparin 5000 units SQ TID (Preferred with Epidurals) *Enoxaparin/Lovenox 40 mg SQ daily (WT < 150 kg, CrCl > 30 mL/min) *Enoxaparin/Lovenox 30 mg SQ daily (WT < 150 kg, CrCl > 10-29 mL/min) *Enoxaparin/Lovenox 30 mg SQ BID (WT < 150 kg, CrCl > 30 mL/min) AND *Sequential Compression Device (SCD) Assessment and Plan Assessment and Plan Encephalopathy A. fib with RVR Dehydration Diabetic ketoacidosis Suspected HIV(based on home meds) Hypotension LOGAN Plan: Neuro: Avoid benzodiazepine and narcotics. Follow neuro status. Head CT negative for bleed. Most likely metabolic encephalopathy. Hopefully neuro status improves with correction of DKA. Awaiting urine tox screen. Cardiovascular: Aggressive fluid resuscitation. Cardizem drip to be continued for rate control. Given digoxin 0.5 mg IV 1 dose. Watch for hypotension. May require anticoagulation for A. fib. Check cardiac enzymes. Cardiology consult for A. fib. Pulmonary: Supplemental O2 as needed. GI/liver: Nothing by mouth for now.. Renal/: Making adequate urine. Strict intake output, monitor and replete electro lites, follow BUN/creatinine. Expect BUN/creatinine to improve with IV hydration. ID: Continue home HIV meds. Endocrine: Insulin drip per DKA protocol initiated. Follow DKA protocol. Prophylaxis: SCDs/ heparin 5000 units subcutaneous every 12 hourly. Consider full anticoagulation in a.m. for A. fib. Condition critical Time spent on critical care excluding procedures 50 minutes Chucky Samuel MD Aug 24, 2017 21:11
[2017-08-24] MEDS ORDERED: guaiFENesin E.R. 600 MG TAB PO PRN (21:15)
[2017-08-24] MEDS ORDERED: NON-FORMULARY DRUG (Cholecalciferol (Vitamin D3) 50,000 UNITS) PO SCH (21:15)
[2017-08-24] MEDS: DEXT 5%-NACL 0.9% 1000 ML INJ 1,000 ML IV SCH (22:30)
[2017-08-24] MEDS: DOCUSATE SODIUM 50 MG/SENNA 8.6 MG TAB PO SCH (22:30)
[2017-08-24] MEDS: SODIUM CHLORIDE 0.9% FLUSH 10 ML FLUSH IV FLUSH SCH (22:32)
[2017-08-24] MEDS: HEPARIN SODIUM - SQ 10,000 UNITS/ML VIAL SQ SCH (22:33)
[2017-08-25] VITALS (27 sets, daily range): BP systolic 102–145; BP diastolic 65–96; PULSE 87–109; RESP 14–32; TEMP 96.9–99.5; O2SAT 93–99
[2017-08-25 00:30] LABS: CALCIUM 7.7 MG/DL (8.5-10.1); CREATININE 2.01 MG/DL (0.50-1.00); MAGNESIUM 3.2 MG/DL (1.5-2.5); PHOSPHORUS 2.6 MG/DL (2.5-4.9)
[2017-08-25] MEDS: DEXT 5%-NACL 0.9% 1000 ML INJ 1,000 ML IV SCH ×3 (00:32→03:03)
[2017-08-25] MEDS: SODIUM CHLOR 0.9% 1000 ML INJ 1,000 ML IV SCH (00:37)
[2017-08-25] MEDS: CHLORHEXIDINE GLUCONATE 2 % 1 PACK (2 CLOTHS) TOP SCH (00:39)
[2017-08-25] MEDS: LACTATED RINGER'S 1000 ML INJ 1,000 ML IV SCH ×2 (01:17→06:15)
[2017-08-25 04:58] LABS: HEMATOCRIT 41.5 % (35.0-46.0); HEMOGLOBIN 13.2 GM/DL (11.6-15.3); MEAN CELL VOLUME 95.8 FL (80.0-100.0); MEAN CORPUSCULAR HEMOGLOBIN 30.4 PG (27.0-34.0); MEAN CORPUSCULAR HGB CONC 31.7 % (32.0-36.0); PLATELET COUNT 106 TH/MM3 (150-450); RED BLOOD COUNT 4.33 MIL/MM3 (4.00-5.30); RED CELL DISTRIBUTION WIDTH 15.5 % (11.6-17.2); WHITE BLOOD COUNT 9.4 TH/MM3 (4.0-11.0)
[2017-08-25 05:41] LABS: BICARBONATE 17.7 MEQ/L (21.0-32.0); CALCIUM 7.7 MG/DL (8.5-10.1); CREATININE 1.59 MG/DL (0.50-1.00); MAGNESIUM 3.1 MG/DL (1.5-2.5); PHOSPHORUS 2.1 MG/DL (2.5-4.9)
[2017-08-25 05:46] LABS: BANDS 22 % (0-6); LYMPHOCYTES 7 % (9-44); METAMYELOCYTES 5 % (0-1); MONOCYTES 2 % (0-8); NEUTROPHIL # MANUAL DIFF 8.6 TH/MM3 (1.8-7.7); POLYS (SEG NEUTROPHILS) 64 % (16-70)
[2017-08-25 05:47] LABS: TEARDROP RBCS 1+ (NORMAL)
--- NOTE | 2017-08-25 07:15 | HHI.CCPN ---
Subjective Remarks/Hospital Course 57-year-old female with a medical history significant for diabetes mellitus who was brought to the ER by [facility] with altered mental status. Details of urination unavailable as no family members available and patient to disoriented to give history. She was noted to be extremely hyperglycemic with blood glucoses in the 1900 range with severe metabolic acidosis and elevated beta hydroxybutyrate consistent with DKA. Patient was also noted to be in A. fib with RVR. Head CT done in the ER was negative for any bleed. She received IV insulin was started on a Cardizem drip for rate control and received 3 L normal saline bolus. Patient was accepted for admission by critical care medicine service. When I evaluated the patient in the ER she was drowsy though arousable , knew she was in the hospital however could not give me details of her history. She denied any chest pain or shortness of breath. Subjective 08/25: Currently resting in bed somewhat confused. Sodium currently 157. Will adjust IV fluids. Afebrile. Objective Vital Signs Date Time Temp Pulse Resp B/P (MAP) Pulse Ox O2 Delivery O2 Flow Rate FiO2 08/25/17 06:00 97 08/25/17 06:00 97.3 29 120/81 (94) 94 08/25/17 00:30 Nasal Cannula 3.00 Intake and Output 08/25/17 08/25/17 08/26/17 08:00 16:00 00:00 Intake Total 2485.6 ml Output Total 1500 ml Balance 985.6 ml Result Diagram: 08/25/17 0422 08/25/17 0422 Other Results Microbiology Date/Time Source Procedure Growth Status 08/24/17 21:00 Blood Peripheral Aerobic Blood Culture - Preliminary NO GROWTH IN 1 DAY Resulted 08/24/17 21:00 Blood Peripheral Anaerobic Blood Culture - Preliminary NO GROWTH IN 1 DAY Resulted 08/24/17 17:00 Urine Catheterized Urine Urine Culture Pending Worksheet Imaging Last Impressions Chest X-Ray 08/24/17 1643 Signed Impressions: Service Date/Time: Thursday, August 24, 2017 17:48 - CONCLUSION: No acute disease. Jose Daniel Teresa MD Head CT 08/24/17 0000 Signed Impressions: Service Date/Time: Thursday, August 24, 2017 19:17 - CONCLUSION: Negative noncontrast head CT. Italo Anguiano MD Objective Remarks GENERAL: 57-year-old female resting in bed in no distress SKIN: Warm and dry. HEAD: Atraumatic. Normocephalic. EYES: Pupils equal and round. No scleral icterus. No injection or drainage. ENT: No nasal bleeding or discharge. Mucous membranes pink and moist. NECK: Trachea midline. No JVD. CARDIOVASCULAR: Tachycardic, RR. S1, S2 no S4 without murmur RESPIRATORY: No accessory muscle use. Clear to auscultation. Breath sounds equal bilaterally. GASTROINTESTINAL: Abdomen soft, non-tender, nondistended. Hepatic and splenic margins not palpable. MUSCULOSKELETAL: Extremities without clubbing, cyanosis, or edema. No obvious deformities. NEUROLOGICAL: Awake and alert. No obvious cranial nerve deficits. Motor grossly within normal limits. Five out of 5 muscle strength in the arms and legs. Normal speech. A/P Assessment and Plan Neuro/Psych: Acute toxic metabolic encephalopathy Acetaminophen 650 mg by mouth every 6 hours when necessary fever/pain 1-10 Avoid benzodiazepine and narcotics. Follow neuro status. CT brain 08/24 negative for acute intracranial pathology/negative for bleed. Most likely metabolic encephalopathy. Urine drug screen negative Cardiovascular: Hypertension Dyslipidemia Admission diagnosis with A. fib with RVR currently normal sinus rhythm Aggressive fluid resuscitation currently on D5 1 quarter normal saline at 200 cc an hour Discontinue diltiazem to be continued for rate control. Started on diltiazem 30 mg 4 times a day Patient was Given digoxin 0.5 mg IV 1 dose. [id number] score 3 1 female, hypertension, diabetes. Likely should be anticoagulated if atrial fibrillation Cardiology consulted by overnight frame gate mortiser operator 2-D echocardiogram pending Most recent troponin pending. On admission 0.02 Pulmonary: Nasal cannula to maintain saturations greater than equal to 92% Incentive spirometry while awake GI/liver: Nothing by mouth for now. Famotidine for GI prophylaxis Docusate sodium/senna 1 tablet twice a day for bowel regimen Renal/: Acute kidney injury Making adequate urine. Strict intake output, follow BUN/creatinine. Expect BUN/creatinine to improve with IV hydration. ID: History of HIV Urinary tract infection Continue home HIV meds. Including Elvitegravir/Cobicistat/Emtricitabine/ Tenofovir alafenamide 150/150/12/10 one tablet daily Started on levofloxacin 500 mg IV daily. Adjust renal dosage as creatinine improved Blood cultures 2 08/24 no growth. Urine culture pending Endocrine: DKA Diabetes mellitus type 2 Insulin drip per DKA protocol initiated. Currently at 12 units an hour Follow DKA protocol. Holding insulin glargine 20 units at night, Canaglifozin 100 mg daily, glipizide 10 mg twice a day along with pioglitazone 45 mg daily Transition back to insulin detemir/hospital substitution for glargine with sliding scale insulin like this afternoon Follow-up hemoglobin A1c in a.m. TSH 0.379 FEN Hypernatremia Hypophosphatemia Hyper-magnesium Adjust IV fluids to quarter normal saline see above 15 mmol potassium phosphate IV 1 now. Serial electrolytes every 6/12 hours HEME Thrombocytopenia Monitor CBC daily. Follow trends Muscle skeletal Osteoarthritis/osteoporosis Continue calcium carbonate/cholecalciferol adjusted to 250/125 2 tablets twice a day PT evaluate and treat Prophylaxis: SCDs/ heparin 5000 units subcutaneous every 12 hourly. GI prophylaxis with famotidine. Level II follow-up Kieran Gibbs MD Aug 25, 2017 07:15
[2017-08-25] MEDS: DEXTROSE 5%-NACL 0.225% INJ 1,000 ML IV SCH ×3 (07:30→19:30)
[2017-08-25] MEDS: INSULIN REGULAR (IV INFUSION) 100 UNITS in SODIUM CHLORIDE 0.9% INJ 99 ML IV PRN (08:08)
[2017-08-25] MEDS ORDERED: CALCIUM CARBONATE CHOLECALCIFEROL PO SCH (09:00)
[2017-08-25] MEDS ORDERED: NON-FORMULARY DRUG (Elvitegravir-Cobicistat-Emtricitabin-Tenofvir (Genvoya) 1 TAB) PO SCH (09:00)
[2017-08-25] MEDS: CALCIUM/VITAMIN D 250 MG/125 U TAB PO SCH ×2 (09:00→20:14)
[2017-08-25] MEDS: MULTIVITAMIN TAB PO SCH (09:00)
[2017-08-25] MEDS ORDERED: MULTIPLE VITAMIN PO SCH (09:00)
[2017-08-25] MEDS ORDERED: PT:GENVOYA PO SCH (09:00)
[2017-08-25] MEDS: DOCUSATE SODIUM 50 MG/SENNA 8.6 MG TAB PO SCH ×2 (09:00→20:14)
[2017-08-25] MEDS: HEPARIN SODIUM - SQ 10,000 UNITS/ML VIAL SQ SCH ×2 (10:55→20:14)
[2017-08-25] MEDS: SODIUM CHLORIDE 0.9% FLUSH 10 ML FLUSH IV FLUSH SCH ×2 (10:55→20:14)
[2017-08-25] MEDS: FAMOTIDINE 20 MG/2 ML VIAL IV PUSH SCH (12:00)
--- NOTE | 2017-08-25 12:04 | ECHRPT ---
Indication: ASSESS LV FXN CONCLUSIONS Normal left ventricular size. Wall thickness is normal. The left ventricular systolic function is low normal with an estimated ejection fraction in the rang e of 50- 55%. Mitral annular calcification is present. Trace aortic valve regurgitation. BP: 120 / 81 HR: 94 Rhythm: MEASUREMENTS (Male / Female) Normal Values Technical Quality:Good 2D ECHO LV Diastolic Diameter PLAX 4.3 cm 4.2 - 5.9 / 3.9 - 5.3 cm LV Systolic Diameter PLAX 3.3 cm IVS Diastolic Thickness 1.0 cm 0.6 - 1.0 / 0.6 - 0.9 cm LVPW Diastolic Thickness 0.5 cm 0.6 - 1.0 / 0.6 - 0.9 cm LV Relative Wall Thickness 0.3 RV Internal Dim ED PLAX 1.8 cm LA Systolic Diameter LX 2.8 cm 3.0 - 4.0 / 2.7 - 3.8 cm DOPPLER Mitral E Point Velocity 63.2 cm/s Mitral A Point Velocity 78.5 cm/s Mitral E to A Ratio 0.8 TR Peak Velocity 361.0 cm/s TR Peak Gradient 52.1 mmHg Right Atrial Pressure 10.0 mmHg Pulmonary Artery Systolic Pressu 62.1 mmHg Right Ventricular Systolic Press 62.1 mmHg FINDINGS LEFT VENTRICLE Normal left ventricular size. Wall thickness is normal. The left ventricular systolic function is low normal with an estimated ejection fraction in the rang e of 50- 55%. RIGHT VENTRICLE Normal right ventricular size and systolic function. LEFT ATRIUM The left atrial size is normal. RIGHT ATRIUM The right atrial size is normal. ATRIAL SEPTUM Normal atrial septal thickness without atrial level shunting by limited color doppler interrogation. AORTA The aortic root and proximal ascending aorta are normal in size on limited imaging. MITRAL VALVE Mitral annular calcification is present. AORTIC VALVE Trace aortic valve regurgitation. TRICUSPID VALVE Structurally normal tricuspid valve. No tricuspid valve stenosis or regurgitation. PULMONARY VALVE No pulmonary valve regurgitation or stenosis. VESSELS The inferior vena cava is normal in size. PERICARDIUM No pericardial effusion. Jeremiah Bauman MD, FACC (Electronically Signed) Final Date:25 August 2017 12:03
[2017-08-25] MEDS: DILTIAZEM HCL 30 MG TAB PO SCH ×2 (14:00→18:00)
[2017-08-25] MEDS: LEVOFLOXACIN 500 MG PREMIX INJ 100 ML IV SCH (14:00)
--- NOTE | 2017-08-25 16:05 | MB ---
cc: CARRI MARIA M.D. DATE OF CONSULTATION: 08/25/2017. REASON FOR CONSULTATION: Evaluation of atrial fibrillation. HISTORY OF PRESENT ILLNESS: This is a 57-year-old female brought into the hospital with diabetic ketoacidosis and extremely elevated blood sugar. The patient is markedly lethargic. I was able to obtain history from her that she stopped her insulin for two days prior to admission. The patient is lethargic. I could not get any history of chest pain, arrhythmias or other symptoms at this time. She was in rapid atrial fibrillation on admission and she has since converted into sinus rhythm. PAST MEDICAL HISTORY: Her past medical history includes: 1. Diabetes 2. No other pertinent medical history could be obtained at this time. SOCIAL HISTORY: She is a nonsmoker. ALLERGIES: 1. PENICILLIN. 2. VANCOMYCIN. MEDICATIONS: 1. Vasotec 5 milligrams daily. 2. Crestor 5 milligrams daily. 3. Plus her diabetes medications. PHYSICAL EXAMINATION: GENERAL: The physical exam shows a well-developed, well-nourished lethargic -[place] female. VITAL SIGNS: Charted. HEAD, EYES, EARS, NOSE, THROAT: Unremarkable. NECK: No jugular venous distention or bruits. CHEST: Clear to auscultation. CARDIAC: S1-S2 regular rate and rhythm. No murmurs or gallops. ABDOMEN: Abdomen soft and nontender. EXTREMITIES: No cyanosis, clubbing or edema. LABORATORY DATA: Her laboratories are very abnormal and extensively charted. RADIOLOGICAL STUDIES: Chest x-ray shows no acute disease. EKGS: The initial EKG showed atrial fibrillation with rapid ventricular response and nonspecific S-T-T wave changes. She has converted to a sinus rhythm. IMPRESSION: Paroxysmal atrial fibrillation ____ due to diabetic ketoacidosis now she is sinus rhythm. RECOMMENDATIONS: 1. Check a 2-D echocardiogram Doppler study. 2. Repeat EKG. MD GHULAM Mckeon/FRANKLYN /3:17 PM /3:50 PM
[2017-08-25] MEDS ORDERED: ERGOCALCIFEROL (VIT D2) 50,000 UNIT CAP PO SCH (18:00)
[2017-08-25 19:12] LABS: CALCIUM 7.8 MG/DL (8.5-10.1); CREATININE 1.42 MG/DL (0.50-1.00); MAGNESIUM 2.6 MG/DL (1.5-2.5); TROPONIN I 0.08 NG/ML (0.02-0.05)
[2017-08-25] MEDS ORDERED: GLUCAGON 1 MG/ML VIAL OTHER PRN (21:00)
[2017-08-25] MEDS ORDERED: DC Insulin drip 2 hrs post basal insulin dose ONE (21:00)
[2017-08-25] MEDS ORDERED: DC previous DKA orders (HMC 1917) ONE (21:00)
[2017-08-25] MEDS ORDERED: DEXTROSE 50% IN WATER 50 ML VIAL(D50) IV PUSH PRN (21:00)
[2017-08-25] MEDS: INSULIN DETEMIR 100 UNITS/ML VIAL SQ SCH (21:21)
[2017-08-26] VITALS (21 sets, daily range): BP systolic 88–124; BP diastolic 54–82; PULSE 92–112; RESP 11–30; TEMP 98.5–100; O2SAT 92–98
[2017-08-26] MEDS: FAMOTIDINE 20 MG/2 ML VIAL IV PUSH SCH ×3 (00:11→23:54)
[2017-08-26] MEDS: DEXTROSE 5%-NACL 0.225% INJ 1,000 ML IV SCH ×2 (00:11→06:00)
[2017-08-26] MEDS: INSULIN ASPART SUPPLEMENTAL SCALE SQ SCH ×7 (00:11→23:55)
[2017-08-26] MEDS: DILTIAZEM HCL 30 MG TAB PO SCH ×5 (00:11→23:54)
[2017-08-26] MEDS: CHLORHEXIDINE GLUCONATE 2 % 1 PACK (2 CLOTHS) TOP SCH (00:12)
[2017-08-26 01:20] LABS: ALBUMIN 2.3 GM/DL (3.4-5.0); ALKALINE PHOSPHATASE 79 U/L (45-117); ALT (GPT) 16 U/L (10-53); AST (GOT) 34 U/L (15-37); BLOOD UREA NITROGEN 26 MG/DL (7-18); CALCIUM 7.7 MG/DL (8.5-10.1); CHLORIDE 121 MEQ/L (98-107); CREATININE 1.17 MG/DL (0.50-1.00); GLOMERULAR FILTRATION RATE 58 ML/MIN (>89); GLUCOSE,RANDOM 234 MG/DL (74-106); MAGNESIUM 2.5 MG/DL (1.5-2.5); PHOSPHORUS 0.9 MG/DL (2.5-4.9); SODIUM (NA) 153 MEQ/L (136-145); TOTAL BILIRUBIN ADULT 0.4 MG/DL (0.2-1.0); TROPONIN I 0.07 NG/ML (0.02-0.05)
[2017-08-26] MEDS ORDERED: SODIUM PHOSPHATE INJ 30 MMOL in SODIUM CHLOR 0.9% 250 ML INJ 250 ML IV ONE (03:30)
[2017-08-26 06:55] LABS: AUTOMATED NEUTROPHIL # 8.8 TH/MM3 (1.8-7.7); BASOPHIL % 0.2 % (0.0-2.0); HEMOGLOBIN 13.2 GM/DL (11.6-15.3); LYMPHOCYTE # 1.9 TH/MM3 (1.0-4.8); MEAN CELL VOLUME 93.8 FL (80.0-100.0); MEAN PLATELET VOLUME 11.6 FL (7.0-11.0); MONO % 3.2 % (0.0-8.0); MONOCYTE # 0.3 TH/MM3 (0-0.9); NEUT % 79.6 % (16.0-70.0); PLATELET COUNT 98 TH/MM3 (150-450); RED BLOOD COUNT 4.26 MIL/MM3 (4.00-5.30); RED CELL DISTRIBUTION WIDTH 15.2 % (11.6-17.2)
[2017-08-26 07:01] LABS: MAGNESIUM 2.5 MG/DL (1.5-2.5); PHOSPHORUS 1.5 MG/DL (2.5-4.9)
[2017-08-26 07:03] LABS: CHOLESTEROL/ HDL RATIO 3.4 RATIO; HDL CHOLESTEROL 33.8 MG/DL (40.0-60.0)
--- NOTE | 2017-08-26 08:15 | EKG ---
Date Performed: 08/24/2017 Time Performed: 16:42:54 PTAGE: 57 years EKG: ATRIAL FIBRILLATION WITH RAPID VENTRICULAR RESPONSE MINIMAL VOLTAGE CRITERIA FOR LVH, CONSI GRACY NORMAL VARIANT NONSPECIFIC ST & T-WAVE ABNORMALITY ABNORMAL RHYTHM ECG Compared to PREVIOUS TRACING atrial fibrillation is new PREVIOUS TRACIN10/25/2016 15.42 DOCTOR: Garrick Saini Interpretating Date/Time 08/26/2017 08:13:58
--- NOTE | 2017-08-26 08:18 | EKG ---
Date Performed: 08/24/2017 Time Performed: 16:55:05 PTAGE: 57 years EKG: ATRIAL FIBRILLATION WITH RAPID VENTRICULAR RESPONSE MINIMAL VOLTAGE CRITERIA FOR LVH, CONSI GRACY NORMAL VARIANT NONSPECIFIC T-WAVE ABNORMALITY Compared to previous tracing ventricular rate is no w slower ABNORMAL RHYTHM ECG PREVIOUS TRACING : 08/24/17 16:42 DOCTOR: Garrick Saini Interpretating Date/Time 08/26/2017 08:15:47
[2017-08-26 08:43] LABS: BANDS 14 % (0-6); LYMPHOCYTES 12 % (9-44); MONOCYTES 7 % (0-8); NEUTROPHIL # MANUAL DIFF 8.9 TH/MM3 (1.8-7.7); POLYS (SEG NEUTROPHILS) 67 % (16-70)
[2017-08-26 08:50] LABS: HEMOGLOBIN A1C 16.9 % (4.3-6.0)
[2017-08-26] MEDS ORDERED: GENVOYA PO SCH (09:00)
[2017-08-26] MEDS: CALCIUM/VITAMIN D 250 MG/125 U TAB PO SCH ×2 (09:08→20:12)
[2017-08-26] MEDS: MULTIVITAMIN TAB PO SCH (09:08)
[2017-08-26] MEDS: HEPARIN SODIUM - SQ 10,000 UNITS/ML VIAL SQ SCH ×2 (09:08→20:12)
[2017-08-26] MEDS: DOCUSATE SODIUM 50 MG/SENNA 8.6 MG TAB PO SCH ×2 (09:08→20:12)
[2017-08-26] MEDS: SODIUM CHLORIDE 0.9% FLUSH 10 ML FLUSH IV FLUSH SCH ×2 (09:08→20:13)
--- NOTE | 2017-08-26 09:09 | PD.CARD.PN ---
Subjective Subjective Remarks no CV complaints. No chest pain Objective Medications Current Medications Medications (Trade) Dose Ordered Sig/Miko Route Start Time Stop Time Status Last Admin (NS Flush) 2 ml UNSCH PRN IV FLUSH 08/24/17 20:45 (NS Flush) 2 ml BID IV FLUSH 08/24/17 21:00 08/25/17 10:55 (Tylenol) 650 mg Q6H PRN PO 08/24/17 20:45 (Zofran Inj) 4 mg Q6H PRN IV PUSH 08/24/17 20:45 (Heparin Inj) 5,000 units Q12HR SQ 08/24/17 21:00 08/25/17 20:14 Miscellaneous Information 1 Q361D XX 08/24/17 20:45 08/24/17 20:45 (Chlorhexidine 2% Cloth) 3 pack Taper DAILY@04 TOP 08/25/17 04:00 08/21/18 03:59 08/26/17 00:12 (Chlorhexidine 2% Cloth) 3 pack UNSCH PRN TOP 08/24/17 20:45 (Genet-Colace) 1 tab BID PO 08/24/17 21:00 08/25/17 20:14 (Milk Of Magnesia Liq) 30 ml Q12H PRN PO 08/24/17 20:45 (Senokot) 17.2 mg Q12H PRN PO 08/24/17 20:45 (Dulcolax Supp) 10 mg DAILY PRN RECTAL 08/24/17 20:45 (Lactulose Liq) 30 ml DAILY PRN PO 08/24/17 20:45 (Mucinex Er) 600 mg BID PRN PO 08/24/17 21:15 (Theragran) 1 tab DAILY PO 08/25/17 09:00 (Oscal-D 250-125) 500 mg BID PO 08/25/17 09:00 08/25/17 20:14 Dextrose/Sodium Chloride 1,000 ml @ 200 mls/hr Q5H IV 08/25/17 10:00 08/25/17 19:30 Patient Own Medication PT OWN MED: GENVOY... DAILY PO 08/26/17 09:00 Future Hold (Cardizem) 30 mg Q6HR PO 08/25/17 14:00 08/26/17 06:08 Levofloxacin/ Dextrose 100 ml @ 100 mls/hr Q24H IV 08/25/17 14:00 08/25/17 14:00 (Pepcid Inj) 10 mg Q12H IV PUSH 08/25/17 12:00 08/26/17 00:11 (Drisdol) 50,000 units Q7D PO 08/25/17 18:00 (Levemir Inj) 20 units HS SQ 08/25/17 21:00 08/25/17 21:21 (NovoLOG SUPPLEMENTAL SCALE) 1 Q4HR SQ 08/26/17 00:00 08/26/17 03:59 (D50w (Vial) Inj) 50 ml UNSCH PRN IV PUSH 08/25/17 21:00 (Glucagon Inj) 1 mg UNSCH PRN OTHER 08/25/17 21:00 Sodium Phosphate 30 mmol/Sodium Chloride 260 ml @ 43.333 mls/ hr ONCE ONCE IV 08/26/17 03:30 08/26/17 09:29 08/26/17 03:31 Vital Signs / I&O Vital Signs Date Time Temp Pulse Resp B/P (MAP) Pulse Ox O2 Delivery O2 Flow Rate FiO2 08/26/17 08:00 93 08/26/17 08:00 98.8 93 19 101/60 (74) 94 08/26/17 07:51 92 08/26/17 07:00 95 Room Air 08/26/17 07:00 99.7 95 12 103/68 (80) 98 08/26/17 06:00 99 08/26/17 06:00 99.6 99 30 105/70 (82) 95 08/26/17 05:00 99.5 99 16 108/62 (77) 95 08/26/17 04:00 99.8 100 22 109/75 (86) 95 08/26/17 04:00 96 08/26/17 03:00 100.0 96 20 116/74 (88) 95 08/26/17 02:00 98 08/26/17 02:00 100.0 98 18 122/79 (93) 96 08/26/17 01:00 99.7 97 18 118/76 (90) 96 08/26/17 00:00 97 08/26/17 00:00 99.5 97 18 124/79 (94) 94 08/25/17 23:00 99.5 108 16 103/69 (80) 94 08/25/17 22:00 99.2 98 17 112/73 (86) 98 08/25/17 22:00 98 08/25/17 21:00 98.9 103 30 118/73 (88) 97 08/25/17 20:00 105 08/25/17 20:00 98.9 105 17 105/65 (78) 97 08/25/17 19:03 99 Nasal Cannula 3.00 08/25/17 19:00 99.2 105 25 121/66 (84) 99 08/25/17 19:00 99 Nasal Cannula 2.00 08/25/17 18:00 99.1 109 23 116/68 (84) 99 08/25/17 18:00 109 08/25/17 17:00 99.1 108 26 106/79 (88) 99 08/25/17 17:00 108 08/25/17 16:00 98.9 97 26 102/68 (79) 98 08/25/17 16:00 97 08/25/17 15:00 104 08/25/17 15:00 98.7 104 30 115/80 (92) 98 08/25/17 14:00 101 08/25/17 14:00 98.5 101 18 118/80 (93) 97 08/25/17 13:00 101 08/25/17 13:00 98.1 101 22 115/78 (90) 98 08/25/17 12:00 97.9 100 19 134/81 (98) 98 08/25/17 12:00 100 08/25/17 11:00 97.9 99 14 127/79 (95) 96 08/25/17 11:00 99 08/25/17 10:00 101 08/25/17 10:00 97.9 101 16 133/82 (99) 96 08/25/17 09:15 96 Nasal Cannula 3.00 I/O 08/25/17 08/25/17 08/25/17 08/26/17 08/26/17 08/26/17 07:00 15:00 23:00 07:00 15:00 23:00 Intake Total 2485.6 ml 1375 ml 1799 ml Output Total 1500 ml 750 ml 500 ml Balance 985.6 ml 1375 ml 1049 ml -500 ml Intake IV Total 2485.6 ml 1375 ml 1799 ml Output Urine Total 1500 ml 750 ml 500 ml # Bowel Movements 0 0 Physical Exam Awake tele: no further AF CV S1S2 RRR with 1/6 [facility]ANA Laboratory Laboratory Tests Test 08/25/17 17:55 08/26/17 00:16 08/26/17 06:00 Blood Urea Nitrogen 33 MG/DL 26 MG/DL Creatinine 1.42 MG/DL 1.17 MG/DL Random Glucose 243 MG/DL 234 MG/DL Calcium Level 7.8 MG/DL 7.7 MG/DL Phosphorus Level 1.0 MG/DL 0.9 MG/DL 1.5 MG/DL Magnesium Level 2.6 MG/DL 2.5 MG/DL 2.5 MG/DL Sodium Level 156 MEQ/L 153 MEQ/L Potassium Level 4.2 MEQ/L 4.2 MEQ/L Chloride Level 125 MEQ/L 121 MEQ/L Carbon Dioxide Level 24.0 MEQ/L 26.0 MEQ/L Anion Gap 7 MEQ/L 6 MEQ/L Estimat Glomerular Filtration Rate 46 ML/MIN 58 ML/MIN Troponin I 0.08 NG/ML 0.07 NG/ML Total Protein 8.0 GM/DL Albumin 2.3 GM/DL Alkaline Phosphatase 79 U/L Aspartate Amino Transf (AST/SGOT) 34 U/L Alanine Aminotransferase (ALT/SGPT) 16 U/L Total Bilirubin 0.4 MG/DL B-Hydroxybutyrate 0.87 MMOL/L White Blood Count 11.0 TH/MM3 Red Blood Count 4.26 MIL/MM3 Hemoglobin 13.2 GM/DL Hematocrit 40.0 % Mean Corpuscular Volume 93.8 FL Mean Corpuscular Hemoglobin 31.0 PG Mean Corpuscular Hemoglobin Concent 33.0 % Red Cell Distribution Width 15.2 % Platelet Count 98 TH/MM3 Mean Platelet Volume 11.6 FL Neutrophils (%) (Auto) 79.6 % Lymphocytes (%) (Auto) 17.0 % Monocytes (%) (Auto) 3.2 % Eosinophils (%) (Auto) 0.0 % Basophils (%) (Auto) 0.2 % Neutrophils # (Auto) 8.8 TH/MM3 Lymphocytes # (Auto) 1.9 TH/MM3 Monocytes # (Auto) 0.3 TH/MM3 Eosinophils # (Auto) 0.0 TH/MM3 Basophils # (Auto) 0.0 TH/MM3 CBC Comment AUTO DIFF Differential Total Cells Counted 100 Neutrophils % (Manual) 67 % Band Neutrophils % 14 % Lymphocytes % 12 % Monocytes % 7 % Neutrophils # (Manual) 8.9 TH/MM3 Differential Comment FINAL DIFF MANUAL Platelet Estimate LOW Platelet Morphology Comment ENLARGED Lactic Acid Level 2.7 mmol/L Triglycerides Level 194 MG/DL Cholesterol Level 115 MG/DL LDL Cholesterol 42 MG/DL HDL Cholesterol 33.8 MG/DL Cholesterol/HDL Ratio 3.40 RATIO Assessment and Plan Problem List: (1) Elevated troponin ICD Codes: R74.8 - Abnormal levels of other serum enzymes Plan: doubt ACS (2) Paroxysmal atrial fibrillation ICD Codes: I48.0 - Paroxysmal atrial fibrillation Plan: no recurrence Assessment and Plan I am signing off. Please call if CV help needed. Garrick Saini MD Aug 26, 2017 09:09
--- NOTE | 2017-08-26 10:25 | HHI.CCPN ---
Subjective Remarks/Hospital Course 57-year-old female with a medical history significant for diabetes mellitus who was brought to the ER by [facility] with altered mental status. Details unavailable as no family members available and patient to disoriented to give history. She was noted to be extremely hyperglycemic with blood glucoses in the 1900 range with severe metabolic acidosis and elevated beta hydroxybutyrate consistent with DKA. Patient was also noted to be in A. fib with RVR. Head CT done in the ER was negative for any bleed. She received IV insulin was started on a Cardizem drip for rate control and received 3 L normal saline bolus. Patient was accepted for admission by critical care medicine service. When I evaluated the patient in the ER she was drowsy though arousable, knew she was in the hospital however could not give me details of her history. She denied any chest pain or shortness of breath. Subjective 08/25: Currently resting in bed somewhat confused. Sodium currently 157. Will adjust IV fluids. Afebrile. 08/26: Resting in bed, family at bedside. 08/15 bottles positive for GPC-mostl likely contamination. Allergic to vanc. Na improved to 153. Objective Vital Signs Date Time Temp Pulse Resp B/P (MAP) Pulse Ox O2 Delivery O2 Flow Rate FiO2 08/26/17 09:00 100.0 92 11 104/57 (73) 95 08/26/17 07:00 Room Air 08/25/17 19:03 3.00 Intake and Output 08/26/17 08/26/17 08/27/17 08:00 16:00 00:00 Output Total 500 ml Balance -500 ml Result Diagram: 08/26/17 0600 08/26/17 0016 Imaging Last Impressions Chest X-Ray 08/24/17 1643 Signed Impressions: Service Date/Time: Thursday, August 24, 2017 17:48 - CONCLUSION: No acute disease. Jose Daniel Teresa MD Head CT 08/24/17 0000 Signed Impressions: Service Date/Time: Thursday, August 24, 2017 19:17 - CONCLUSION: Negative noncontrast head CT. Italo Anguiano MD Objective Remarks GENERAL: 57-year-old female resting in bed in no distress SKIN: Warm and dry. HEAD: Atraumatic. Normocephalic. EYES: Pupils equal and round. No scleral icterus. No injection or drainage. ENT: No nasal bleeding or discharge. NECK: Trachea midline. No JVD. CARDIOVASCULAR: Tachycardic, RR. S1, S2 no S4 without murmur RESPIRATORY: No accessory muscle use. Clear to auscultation. Breath sounds equal bilaterally. GASTROINTESTINAL: Abdomen soft, non-tender, nondistended. Hepatic and splenic margins not palpable. MUSCULOSKELETAL: Extremities without clubbing, cyanosis, or edema. No obvious deformities. NEUROLOGICAL: Awake and alert. No obvious cranial nerve deficits. Motor grossly within normal limits. Five out of 5 muscle strength in the arms and legs. Normal speech. A/P Assessment and Plan Neuro/Psych: Acute toxic metabolic encephalopathy Acetaminophen 650 mg by mouth every 6 hours when necessary fever/pain 1-10 Avoid benzodiazepine and narcotics. Follow neuro status. CT brain 08/24 negative for acute intracranial pathology/negative for bleed. Most likely metabolic encephalopathy. Urine drug screen negative Cardiovascular: Hypertension Dyslipidemia Admitted with AChristy fermin with RVR currently normal sinus rhythm Aggressive fluid resuscitation currently on D5 1 quarter normal saline at 200 cc an hour-change to 1/2 NS at 125 ml per hour Continue diltiazem 30 mg 4 times a day Patient was Given digoxin 0.5 mg IV 1 dose. [id number] score 3 1 female, hypertension, diabetes. Likely should be anticoagulated if atrial fibrillation persists Cardiology consulted by overnight histology tech 2-D echocardiogram pending Trop neg Pulmonary: Nasal cannula to maintain saturations greater than equal to 92% Incentive spirometry while awake GI/liver: Start 1999 ADA diet Famotidine for GI prophylaxis Docusate sodium/senna 1 tablet twice a day for bowel regimen Renal/: Acute kidney injury Making adequate urine. Strict intake output, follow BUN/creatinine. improving ID: History of HIV Urinary tract infection GPC 08/15 bottle possible contamination Continue home HIV meds. Including Elvitegravir/Cobicistat/Emtricitabine/ Tenofovir alafenamide 150/150/12/10 one tablet daily Continue Levaquin Blood cultures 2 08/24 14 GPC possible contamination. Await cultures. Urine culture pending Endocrine: DKA-resolved Diabetes mellitus type 2 Insulin drip per DKA protocol initiated. Currently DCd and receiving Levemir and NovoLog sliding scale Start pre-meal NovoLog. Start 1999 ADA diet Holding insulin glargine 20 units at night, Canaglifozin 100 mg daily, glipizide 10 mg twice a day along with pioglitazone 45 mg daily Follow-up hemoglobin A1c 16.9, need repeat once current hyperglycemia controlled TSH 0.379 FEN Hypernatremia Hypophosphatemia Hyper-magnesium IV fluid chowdhury to 1/2 NS Electrolyte replacement per protocol HEME Thrombocytopenia Monitor CBC daily. Follow trends Muscle skeletal Osteoarthritis/osteoporosis Continue calcium carbonate/cholecalciferol adjusted to 250/125 2 tablets twice a day PT evaluate and treat Prophylaxis: SCDs/ heparin 5000 units subcutaneous every 12 hourly. GI prophylaxis with famotidine. Level II follow-up Transfer to Med surg. Hospitalist to assume care in a.m. 08/27/17 Randy Puckett MD Aug 26, 2017 10:25
[2017-08-26] MEDS: SODIUM CHLOR 0.45% 1000 ML INJ 1,000 ML IV SCH ×2 (10:43→20:11)
[2017-08-26] MEDS: INSULIN ASPART 1,000 UNITS/10 ML VIAL SQ SCH (12:00)
[2017-08-26] MEDS: LEVOFLOXACIN 500 MG PREMIX INJ 100 ML IV SCH (14:26)
--- NOTE | 2017-08-26 15:58 | EKG ---
Date Performed: 08/25/2017 Time Performed: 15:36:45 PTAGE: 57 years EKG: SINUS TACHYCARDIA MODERATE T-WAVE ABNORMALITY, CONSIDER ANTERIOR ISCHEMIA ABNORMAL ECG Comp ared to PREVIOUS TRACING , Sinus rhythm has replaced atrial fibrillation. Anterolateral T-wave inversion is new. PREVIOUS TRACIN 8 16.55 DOCTOR: Aramis Mcwilliams Interpretating Date/Time 08/26/2017 15:57:24
[2017-08-26] MEDS ORDERED: INSULIN ASPART 1,000 UNITS/10 ML VIAL SQ SCH (17:00)
[2017-08-26] MEDS: INSULIN DETEMIR 100 UNITS/ML VIAL SQ SCH (20:12)
[2017-08-27] VITALS (11 sets, daily range): BP systolic 92–114; BP diastolic 57–84; PULSE 91–110; RESP 9–30; TEMP 97.9–99.3; O2SAT 95–100
[2017-08-27] MEDS: INSULIN ASPART SUPPLEMENTAL SCALE SQ SCH ×6 (03:34→23:22)
[2017-08-27] MEDS: CHLORHEXIDINE GLUCONATE 2 % 1 PACK (2 CLOTHS) TOP SCH (03:34)
[2017-08-27] MEDS: SODIUM CHLOR 0.45% 1000 ML INJ 1,000 ML IV SCH ×4 (03:56→23:22)
[2017-08-27] MEDS: DILTIAZEM HCL 30 MG TAB PO SCH ×4 (05:12→23:22)
[2017-08-27 07:32] LABS: AUTOMATED NEUTROPHIL # 6.6 TH/MM3 (1.8-7.7); BASOPHIL % 0.4 % (0.0-2.0); EOSINOPHIL % 0.1 % (0.0-4.0); HEMOGLOBIN 11.8 GM/DL (11.6-15.3); LYMPH % 20.5 % (9.0-44.0); LYMPHOCYTE # 1.8 TH/MM3 (1.0-4.8); MEAN CELL VOLUME 94.6 FL (80.0-100.0); MEAN CORPUSCULAR HEMOGLOBIN 30.1 PG (27.0-34.0); MEAN CORPUSCULAR HGB CONC 31.8 % (32.0-36.0); MEAN PLATELET VOLUME 11.1 FL (7.0-11.0); MONO % 4.6 % (0.0-8.0); MONOCYTE # 0.4 TH/MM3 (0-0.9); NEUT % 74.4 % (16.0-70.0); PLATELET COUNT 88 TH/MM3 (150-450); RED BLOOD COUNT 3.91 MIL/MM3 (4.00-5.30); RED CELL DISTRIBUTION WIDTH 15.5 % (11.6-17.2); WHITE BLOOD COUNT 8.9 TH/MM3 (4.0-11.0)
[2017-08-27] MEDS ORDERED: INSULIN ASPART 1,000 UNITS/10 ML VIAL SQ SCH (08:00)
[2017-08-27] MEDS: SODIUM CHLORIDE 0.9% FLUSH 10 ML FLUSH IV FLUSH SCH ×2 (09:18→20:27)
[2017-08-27] MEDS: HEPARIN SODIUM - SQ 10,000 UNITS/ML VIAL SQ SCH ×2 (09:18→20:27)
[2017-08-27] MEDS: MULTIVITAMIN TAB PO SCH (09:19)
[2017-08-27] MEDS: CALCIUM/VITAMIN D 250 MG/125 U TAB PO SCH ×2 (09:19→20:27)
[2017-08-27] MEDS: DOCUSATE SODIUM 50 MG/SENNA 8.6 MG TAB PO SCH ×2 (09:19→20:27)
[2017-08-27 09:47] LABS: ALKALINE PHOSPHATASE 87 U/L (45-117); ALT (GPT) 18 U/L (10-53); AST (GOT) 29 U/L (15-37); BICARBONATE 24.2 MEQ/L (21.0-32.0); BLOOD UREA NITROGEN 11 MG/DL (7-18); CALCIUM 8.5 MG/DL (8.5-10.1); CHLORIDE 114 MEQ/L (98-107); CREATININE 0.89 MG/DL (0.50-1.00); GLOMERULAR FILTRATION RATE 79 ML/MIN (>89); GLUCOSE,RANDOM 105 MG/DL (74-106); SODIUM (NA) 147 MEQ/L (136-145); TOTAL BILIRUBIN ADULT 0.6 MG/DL (0.2-1.0); TOTAL PROTEIN 7.9 GM/DL (6.4-8.2)
[2017-08-27] MEDS: INSULIN ASPART 1,000 UNITS/10 ML VIAL SQ SCH (12:50)
[2017-08-27] MEDS: FAMOTIDINE 20 MG/2 ML VIAL IV PUSH SCH ×2 (12:51→23:22)
[2017-08-27] MEDS: LEVOFLOXACIN 500 MG PREMIX INJ 100 ML IV SCH (13:49)
--- NOTE | 2017-08-27 14:34 | HHI.CCPN ---
Subjective Remarks/Hospital Course 57-year-old female with a medical history significant for diabetes mellitus who was brought to the ER by [facility] with altered mental status. Details unavailable as no family members available and patient to disoriented to give history. She was noted to be extremely hyperglycemic with blood glucoses in the 1900 range with severe metabolic acidosis and elevated beta hydroxybutyrate consistent with DKA. Patient was also noted to be in A. fib with RVR. Head CT done in the ER was negative for any bleed. She received IV insulin was started on a Cardizem drip for rate control and received 3 L normal saline bolus. Patient was accepted for admission by critical care medicine service. When I evaluated the patient in the ER she was drowsy though arousable, knew she was in the hospital however could not give me details of her history. She denied any chest pain or shortness of breath. Subjective 08/25: Currently resting in bed somewhat confused. Sodium currently 157. Will adjust IV fluids. Afebrile. 08/26: Resting in bed, family at bedside. 08/15 bottles positive for GPC-mostl likely contamination. Allergic to vanc. Na improved to 153. 08/27:Had episodes of hypoglycemia requiring dextrose pressures. Overall clinically appears better. GPC and 1 bottle coag negative staph most likely contaminant. Sodium improved to 147 Objective Vital Signs Date Time Temp Pulse Resp B/P (MAP) Pulse Ox O2 Delivery O2 Flow Rate FiO2 08/27/17 12:00 98.7 92 21 114/84 (94) 100 08/27/17 07:00 Room Air 08/27/17 03:44 2.00 Intake and Output 08/27/17 08/27/17 08/28/17 08:00 16:00 00:00 Intake Total 1321 ml Output Total 225 ml Balance 1096 ml Result Diagram: 08/27/17 0613 08/27/17 0852 Other Results Microbiology Date/Time Source Procedure Growth Status 08/24/17 17:00 Urine Catheterized Urine Urine Culture - Final 10-50,000 CFU/ML MIXED GRAM POSITIVE ... Complete Imaging Last Impressions Chest X-Ray 08/24/17 1643 Signed Impressions: Service Date/Time: Thursday, August 24, 2017 17:48 - CONCLUSION: No acute disease. Jose Daniel Teresa MD Head CT 08/24/17 0000 Signed Impressions: Service Date/Time: Thursday, August 24, 2017 19:17 - CONCLUSION: Negative noncontrast head CT. Italo Anguiano MD Objective Remarks GENERAL: 57-year-old female resting in bed in no distress SKIN: Warm and dry. HEAD: Atraumatic. Normocephalic. EYES: Pupils equal and round. No scleral icterus. No injection or drainage. ENT: No nasal bleeding or discharge. NECK: Trachea midline. No JVD. CARDIOVASCULAR: RR. S1, S2 no S4 without murmur RESPIRATORY: No accessory muscle use. Clear to auscultation. Breath sounds equal bilaterally. GASTROINTESTINAL: Abdomen soft, non-tender, nondistended. Hepatic and splenic margins not palpable. MUSCULOSKELETAL: Extremities without clubbing, cyanosis, or edema. No obvious deformities. NEUROLOGICAL: Awake and alert. No obvious cranial nerve deficits. Motor grossly within normal limits. Five out of 5 muscle strength in the arms and legs. Normal speech. A/P Assessment and Plan Neuro/Psych: Acute toxic metabolic encephalopathy Acetaminophen 650 mg by mouth every 6 hours when necessary fever/pain 1-10 Avoid benzodiazepine and narcotics. Follow neuro status. CT brain 08/24 negative for acute intracranial pathology/negative for bleed. Most likely metabolic encephalopathy. Urine drug screen negative Cardiovascular: Hypertension Dyslipidemia Admitted with AChristy fermin with RVR currently normal sinus rhythm IVF 1/2 NS at 125 ml per hour, Na improved to 147 Continue diltiazem 30 mg 4 times a day Patient was Given digoxin 0.5 mg IV 1 dose previously [id number] score 3 1 female, hypertension, diabetes. Likely should be anticoagulated if atrial fibrillation persists Cardiology consulted by overnight play reader. Dr. Saini has signed off 2-D echocardiogram EF 50-55% Trop neg Pulmonary: Nasal cannula to maintain saturations greater than equal to 92% Incentive spirometry while awake GI/liver: 1999 ADA diet Famotidine for GI prophylaxis Docusate sodium/senna 1 tablet twice a day for bowel regimen Renal/: Acute kidney injury Making adequate urine. Strict intake output, follow BUN/creatinine. improving ID: History of HIV Urinary tract infection GPC 08/15 bottle possible contamination Continue home HIV meds. Including Elvitegravir/Cobicistat/Emtricitabine/ Tenofovir alafenamide 150/150/12/10 one tablet daily Continue Levaquin Blood cultures 2 1/13 1/4 GPC possible contamination. Await cultures. Urine culture pending Endocrine: DKA-resolved Diabetes mellitus type 2 Insulin drip per DKA protocol initiated. Currently DCd and receiving Levemir and NovoLog sliding scale Started pre-meal NovoLog 08/27. Started 1999 ADA diet 08/27 because of hypoglycemia Levemir was reduced from 20 to 10 units on pre-meal insulin was also reduced Holding insulin glargine 20 units at night, Canaglifozin 100 mg daily, glipizide 10 mg twice a day along with pioglitazone 45 mg daily Follow-up hemoglobin A1c 16.9, need repeat once current hyperglycemia controlled TSH 0.379 FEN Hypernatremia Hypophosphatemia Hyper-magnesium IV fluid changed to 1/2 NS Electrolyte replacement per protocol HEME Thrombocytopenia Monitor CBC daily. Follow trends Muscle skeletal Osteoarthritis/osteoporosis Continue calcium carbonate/cholecalciferol adjusted to 250/125 2 tablets twice a day PT evaluate and treat Prophylaxis: SCDs/ heparin 5000 units subcutaneous every 12 hourly. GI prophylaxis with famotidine. Level II follow-up Transfer to Med surg. Hospitalist to assume care in a.m. 08/27/17, Awaiting Med Surg bed for transfer Randy Puckett MD Aug 27, 2017 14:34
[2017-08-27] MEDS ORDERED: INSULIN DETEMIR 100 UNITS/ML VIAL SQ SCH (21:00)
[2017-08-28] VITALS: BP 93/55; PULSE 93; RESP 21; TEMP 99.2; O2SAT 94
[2017-08-28] MEDS: CHLORHEXIDINE GLUCONATE 2 % 1 PACK (2 CLOTHS) TOP SCH (03:45)
[2017-08-28] MEDS: INSULIN ASPART SUPPLEMENTAL SCALE SQ SCH ×3 (03:45→12:00)
[2017-08-28 04:00] VITALS: BP 93/70; PULSE 87; RESP 14; TEMP 98.8; O2SAT 96
[2017-08-28] MEDS: DILTIAZEM HCL 30 MG TAB PO SCH ×2 (05:03→12:55)
[2017-08-28 08:00] VITALS: BP 106/72; PULSE 86; PULSE 91; RESP 15; TEMP 98.3; O2SAT 100
[2017-08-28] MEDS ORDERED: INSULIN ASPART 1,000 UNITS/10 ML VIAL SQ SCH (08:00)
[2017-08-28] MEDS: SODIUM CHLORIDE 0.9% FLUSH 10 ML FLUSH IV FLUSH SCH (09:00)
[2017-08-28] MEDS: HEPARIN SODIUM - SQ 10,000 UNITS/ML VIAL SQ SCH (09:59)
[2017-08-28] MEDS: DOCUSATE SODIUM 50 MG/SENNA 8.6 MG TAB PO SCH (09:59)
[2017-08-28] MEDS: CALCIUM/VITAMIN D 250 MG/125 U TAB PO SCH (09:59)
[2017-08-28] MEDS: MULTIVITAMIN TAB PO SCH (09:59)
[2017-08-28 12:00] VITALS: BP 109/75; PULSE 100; PULSE 102; RESP 22; TEMP 98.5; O2SAT 98
[2017-08-28 12:13] VITALS: O2SAT 98
[2017-08-28] MEDS: FAMOTIDINE 20 MG/2 ML VIAL IV PUSH SCH (12:54)
[2017-08-28] MEDS: INSULIN ASPART 1,000 UNITS/10 ML VIAL SQ SCH (12:55)
--- NOTE | 2017-08-28 13:05 | HHI.CCPN ---
Subjective Remarks/Hospital Course 57-year-old female with a medical history significant for diabetes mellitus who was brought to the ER by [facility] with altered mental status. Details unavailable as no family members available and patient to disoriented to give history. She was noted to be extremely hyperglycemic with blood glucoses in the 1900 range with severe metabolic acidosis and elevated beta hydroxybutyrate consistent with DKA. Patient was also noted to be in A. fib with RVR. Head CT done in the ER was negative for any bleed. She received IV insulin was started on a Cardizem drip for rate control and received 3 L normal saline bolus. Patient was accepted for admission by critical care medicine service. When I evaluated the patient in the ER she was drowsy though arousable, knew she was in the hospital however could not give me details of her history. She denied any chest pain or shortness of breath. Subjective 08/25: Currently resting in bed somewhat confused. Sodium currently 157. Will adjust IV fluids. Afebrile. 08/26: Resting in bed, family at bedside. 08/15 bottles positive for GPC-mostl likely contamination. Allergic to vanc. Na improved to 153. 08/27: Had episodes of hypoglycemia requiring dextrose pressures. Overall clinically appears better. GPC and 1 bottle coag negative staph most likely contaminant. Na improved to 147 08/28: Clinically improving, hypoglycemia has resolved. Patient feels better. Possible DC home today Objective Vital Signs Date Time Temp Pulse Resp B/P (MAP) Pulse Ox O2 Delivery O2 Flow Rate FiO2 08/28/17 12:13 98 21 08/28/17 08:00 91 08/28/17 08:00 98.3 15 106/72 (83) 08/27/17 20:21 Nasal Cannula 2.00 Intake and Output 08/28/17 08/28/17 08/28/17 07:59 15:59 23:59 Intake Total 560 ml Balance 560 ml Result Diagram: 08/27/17 0613 08/27/17 0852 Imaging Last Impressions Chest X-Ray 08/24/17 1643 Signed Impressions: Service Date/Time: Thursday, August 24, 2017 17:48 - CONCLUSION: No acute disease. Jose Daniel Teresa MD Head CT 08/24/17 0000 Signed Impressions: Service Date/Time: Thursday, August 24, 2017 19:17 - CONCLUSION: Negative noncontrast head CT. Italo Anguiano MD Objective Remarks GENERAL: 57-year-old female resting in bed in no distress SKIN: Warm and dry. HEAD: Atraumatic. Normocephalic. EYES: Pupils equal and round. No scleral icterus. No injection or drainage. ENT: No nasal bleeding or discharge. NECK: Trachea midline. No JVD. CARDIOVASCULAR: RR. S1, S2 no S4 without murmur RESPIRATORY: No accessory muscle use. Clear to auscultation. Breath sounds equal bilaterally. GASTROINTESTINAL: Abdomen soft, non-tender, nondistended. Hepatic and splenic margins not palpable. MUSCULOSKELETAL: Extremities without clubbing, cyanosis, or edema. No obvious deformities. NEUROLOGICAL: Awake and alert. No obvious cranial nerve deficits. Motor grossly within normal limits. Five out of 5 muscle strength in the arms and legs. Normal speech. A/P Assessment and Plan Neuro/Psych: Acute toxic metabolic encephalopathy-resolved Acetaminophen 650 mg by mouth every 6 hours when necessary fever/pain 1-10 Avoid benzodiazepine and narcotics. Follow neuro status. CT brain 08/24 negative for acute intracranial pathology/negative for bleed. Most likely metabolic encephalopathy. Urine drug screen negative Cardiovascular: Hypertension Dyslipidemia Admitted with A. zander with RVR currently normal sinus rhythm IVF 08/13 NS at 125 ml per hour, Na improved to 147 yesterday. Continue diltiazem 30 mg 4 times a day Patient was Given digoxin 0.5 mg IV 1 dose previously [id number] score 3 1 female, hypertension, diabetes. Likely should be anticoagulated if atrial fibrillation persists- but now consistently in sinus rhythm Dr. Saini has signed off 2-D echocardiogram EF 50-55% Trop neg Pulmonary: Nasal cannula to maintain saturations greater than equal to 92% Incentive spirometry while awake GI/liver: 1999 ADA diet Famotidine for GI prophylaxis Docusate sodium/senna 1 tablet twice a day for bowel regimen Renal/: Acute kidney injury Making adequate urine. Strict intake output, follow BUN/creatinine. improving ID: History of HIV Urinary tract infection GPC 08/15 bottle possible contamination Continue home HIV meds. Including Elvitegravir/Cobicistat/Emtricitabine/ Tenofovir alafenamide 150/150/12/10 one tablet daily Continue Levaquin Blood cultures 2 08/24 1/4 p possible contamination. Urine culture neg Endocrine: DKA-resolved Diabetes mellitus type 2 On Levemir and NovoLog sliding scale Started pre-meal NovoLog 08/27. Started 1999 ADA diet 08/27 because of hypoglycemia Levemir was reduced from 20 to 10 units on pre-meal insulin was also reduced Holding insulin glargine 20 units at night, Canaglifozin 100 mg daily, glipizide 10 mg twice a day along with pioglitazone 45 mg daily Follow-up hemoglobin A1c 16.9, need repeat once current hyperglycemia controlled TSH 0.379 Will DC home on Lantus 15 unit only with sliding scale and pre meal insulin FEN Hypernatremia Hypophosphatemia Hyper-magnesium IV fluid changed to 1/2 NS-DC today Electrolyte replacement per protocol HEME Thrombocytopenia Monitor CBC daily. Follow trends Muscle skeletal Osteoarthritis/osteoporosis Continue calcium carbonate/cholecalciferol adjusted to 250/125 2 tablets twice a day PT evaluate and treat Prophylaxis: SCDs/ heparin 5000 units subcutaneous every 12 hourly. GI prophylaxis with famotidine. Level II follow-up Stable for DC home Randy Puckett MD Aug 28, 2017 13:05
[2017-08-28] MEDS ORDERED: DILT31TA PO (13:16)
[2017-08-28] MEDS ORDERED: LANTUS2P SQ (13:16)
[2017-08-28] MEDS ORDERED: LEVA500T33 PO (13:16)
--- NOTE | 2017-08-28 13:19 | HHI.DS ---
Discharge Summary Admission Date Aug 24, 2017 at 19:47 Admitting Diagnosis DKA, AMS (1) Acute kidney injury ICD Code: N17.9 - Acute kidney failure, unspecified (2) DKA (diabetic ketoacidoses) ICD Code: E13.10 - Other specified diabetes mellitus with ketoacidosis without coma Status: Acute (3) UTI (urinary tract infection) ICD Code: N39.0 - Urinary tract infection, site not specified Status: Acute (4) Hyperglycemia ICD Code: R73.9 - Hyperglycemia, unspecified Status: Acute (5) Paroxysmal atrial fibrillation ICD Code: I48.0 - Paroxysmal atrial fibrillation (6) Altered mental status ICD Code: R41.82 - Altered mental status, unspecified Status: Acute (7) Elevated troponin ICD Code: R74.8 - Abnormal levels of other serum enzymes Brief History 57 year female presents to emergency department via [facility] from home with altered mental status. Patient is unable to give me a history at initial evaluation. 57-year-old female with a medical history significant for diabetes mellitus who was brought to the ER by [facility] with altered mental status. Details of urination unavailable as no family members available and patient to disoriented to give history. She was noted to be extremely hyperglycemic with blood glucoses in the 1900 range with severe metabolic acidosis and elevated beta hydroxybutyrate consistent with DKA. Patient was also noted to be in A. fib with RVR. Head CT done in the ER was negative for any bleed. She received IV insulin was started on a Cardizem drip for rate control and received 3 L normal saline bolus. Patient was accepted for admission by critical care medicine service. When I evaluated the patient in the ER she was drowsy though arousable , knew she was in the hospital however could not give me details of her history. She denied any chest pain or shortness of breath. CBC/BMP: 08/27/17 0613 08/27/17 0852 Significant Findings Laboratory Tests Test 08/25/17 17:55 08/26/17 00:16 08/26/17 06:00 08/26/17 16:17 Blood Urea Nitrogen 33 MG/DL (7-18) 26 MG/DL (7-18) Creatinine 1.42 MG/DL (0.50-1.00) 1.17 MG/DL (0.50-1.00) Random Glucose 243 MG/DL (74-106) 234 MG/DL (74-106) Calcium Level 7.8 MG/DL (8.5-10.1) 7.7 MG/DL (8.5-10.1) Phosphorus Level 1.0 MG/DL (2.5-4.9) 0.9 MG/DL (2.5-4.9) 1.5 MG/DL (2.5-4.9) 1.2 MG/DL (2.5-4.9) Magnesium Level 2.6 MG/DL (1.5-2.5) Sodium Level 156 MEQ/L (136-145) 153 MEQ/L (136-145) Chloride Level 125 MEQ/L (98-107) 121 MEQ/L (98-107) Estimat Glomerular Filtration Rate 46 ML/MIN (>89) 58 ML/MIN (>89) Troponin I 0.08 NG/ML (0.02-0.05) 0.07 NG/ML (0.02-0.05) Albumin 2.3 GM/DL (3.4-5.0) B-Hydroxybutyrate 0.87 MMOL/L (0.00-0.39) Platelet Count 98 TH/MM3 (150-450) Mean Platelet Volume 11.6 FL (7.0-11.0) Neutrophils (%) (Auto) 79.6 % (16.0-70.0) Neutrophils # (Auto) 8.8 TH/MM3 (1.8-7.7) Band Neutrophils % 14 % (0-6) Neutrophils # (Manual) 8.9 TH/MM3 (1.8-7.7) Platelet Estimate LOW (NORMAL) Platelet Morphology Comment ENLARGED (NORMAL) Lactic Acid Level 2.7 mmol/L (0.4-2.0) Triglycerides Level 194 MG/DL (42-150) Cholesterol Level 115 MG/DL (120-200) HDL Cholesterol 33.8 MG/DL (40.0-60.0) Test 08/27/17 06:13 08/27/17 08:52 Red Blood Count 3.91 MIL/MM3 (4.00-5.30) Mean Corpuscular Hemoglobin Concent 31.8 % (32.0-36.0) Platelet Count 88 TH/MM3 (150-450) Mean Platelet Volume 11.1 FL (7.0-11.0) Neutrophils (%) (Auto) 74.4 % (16.0-70.0) Platelet Estimate LOW (NORMAL) Albumin 2.0 GM/DL (3.4-5.0) Sodium Level 147 MEQ/L (136-145) Chloride Level 114 MEQ/L (98-107) Estimat Glomerular Filtration Rate 79 ML/MIN (>89) Imaging CT of the head and chest x-ray negative for acute findings PE at Discharge GENERAL: 57-year-old female resting in bed in no distress SKIN: Warm and dry. HEAD: Atraumatic. Normocephalic. EYES: Pupils equal and round. No scleral icterus. No injection or drainage. ENT: No nasal bleeding or discharge. NECK: Trachea midline. No JVD. CARDIOVASCULAR: RR. S1, S2 no S4 without murmur RESPIRATORY: No accessory muscle use. Clear to auscultation. Breath sounds equal bilaterally. GASTROINTESTINAL: Abdomen soft, non-tender, nondistended. Hepatic and splenic margins not palpable. MUSCULOSKELETAL: Extremities without clubbing, cyanosis, or edema. No obvious deformities. NEUROLOGICAL: Awake and alert. No obvious cranial nerve deficits. Motor grossly within normal limits. Five out of 5 muscle strength in the arms and legs. Normal speech. Transfer Summary See hospital course Hospital Course 57-year-old female with a medical history significant for diabetes mellitus who was brought to the ER by [facility] with altered mental status. Details unavailable as no family members available and patient to disoriented to give history. She was noted to be extremely hyperglycemic with blood glucoses in the 1900 range with severe metabolic acidosis and elevated beta hydroxybutyrate consistent with DKA. Patient was also noted to be in A. fib with RVR. Head CT done in the ER was negative for any bleed. She received IV insulin was started on a Cardizem drip for rate control and received 3 L normal saline bolus. Patient was accepted for admission by critical care medicine service. When I evaluated the patient in the ER she was drowsy though arousable, knew she was in the hospital however could not give me details of her history. She denied any chest pain or shortness of breath. 08/25: Currently resting in bed somewhat confused. Sodium currently 157. Will adjust IV fluids. Afebrile. 08/26: Resting in bed, family at bedside. 08/15 bottles positive for GPC-mostl likely contamination. Allergic to vanc. Na improved to 153. 08/27: Had episodes of hypoglycemia requiring dextrose pressures. Overall clinically appears better. GPC and 1 bottle coag negative staph most likely contaminant. Na improved to 147 08/28: Clinically improving, hypoglycemia has resolved. Patient feels better. Possible DC home today. Patient will be asked to reduce Lantus to 15 units to avoid hypoglycemia and also hold glipizide and pioglitazone until she sees her primary care physician. Continue HAART meds. Continue for 2 more days starting from 08/29/18 Pt Condition on Discharge: Stable Discharge Disposition: Discharge Home Discharge Instructions DIET: Follow Instructions for: Diabetic Diet Activities you can perform: See Additionl Instruction Other Activity Instructions: Per PT recommendation New Medications: Diltiazem (Cardizem) 30 Mg Tab 30 MG PO Q6HR for A fib for 30 Days, #120 TAB 1 Refill Levofloxacin (Levaquin) 500 Mg Tablet 500 MG PO DAILY for UTI for 2 Days, #2 TAB 0 Refills Changed Medications: Insulin Glargine Inj (Lantus Inj) 100 Unit/Ml Inj 15 UNITS SQ HS for DM for 30 Days, #30 BOTTLE 1 Refill (Changed from: 20 UNITS; Refills: ) Continued Medications: Calcium Carbonate-Cholecalciferol (Calcium 600+D) 600-800 Mg-Unit Tab 1 TAB PO BID, TAB Canagliflozin (Invokana) 100 Mg Tab 100 MG PO DAILY for Blood Sugar Management, #30 TAB 0 Refills Take before 1st meal of day. Cholecalciferol (Vitamin D3) 50,000 Unit Tab 87774 UNITS PO WEEKLY for Nutritional Supplement, #1 BOTTLE 0 Refills Mzpjoemsjjwu-Cqamtjxwas-Ydyhocdnluby-Tenofvir (Genvoya) [phone] Mg Tab 1 TAB PO DAILY for Mgmt Viral Infection, #30 TAB 0 Refills Enalapril (Vasotec) 5 Mg Tab 5 MG PO DAILY, #30 TAB 0 Refills Guaifenesin ER 12 HR (Mucinex ER 12 HR) 600 Mg Ewelina 600 MG PO BID PRN for cough, #60 TAB 0 Refills Multiple Vitamin (Thera) 1 Tab Tab 1 TAB PO DAILY Oxycodone-Acetaminophen (Percocet) 5-325 mg Tab 1-2 TAB PO Q6H PRN for PAIN, #12 TAB 0 Refills Rosuvastatin (Crestor) 5 Mg Tab 5 MG PO DAILY for Cholesterol Management, #30 TAB 0 Refills Discontinued Medications: Glipizide (Glipizide) 10 Mg Tab 10 MG PO BID for Blood Sugar Management, #60 TAB 0 Refills Take 30 minutes before a meal Pioglitazone (Pioglitazone) 45 Mg Tab 45 MG PO DAILY for Blood Sugar Management, #30 TAB 0 Refills Additional Information Reduce Lantus to 15 units qhs Continue blod sugar check q6 hours Hold Glipizide and Pioglitazone until you see your PCP Randy Puckett MD Aug 28, 2017 13:19
[2017-08-29] MEDS ORDERED: LEVOFLOXACIN 500 MG TAB PO SCH (11:00)
== END 2017-08-28 15:40 | disposition home or self-care (01) | DRG 682 ==
LOC: NEPE 16:26 → NEDA 19:47 → HIME 21:25
PROVIDERS: ADMIT Internal Medicine Critical Care Medicine; ATTEND Internal Medicine Critical Care Medicine
DX: N17.9 Acute kidney failure, unspecified (principal); E11.10 Type 2 diabetes mellitus with ketoacidosis without coma; G92 Toxic encephalopathy; E87.0 Hyperosmolality and hypernatremia; E11.649 Type 2 diabetes mellitus with hypoglycemia without coma; I95.9 Hypotension, unspecified; D69.6 Thrombocytopenia, unspecified; E83.39 Other disorders of phosphorus metabolism; I48.0 Paroxysmal atrial fibrillation; E86.0 Dehydration; I10 Essential (primary) hypertension; R74.8 Abnormal levels of other serum enzymes; E78.5 Hyperlipidemia, unspecified; M81.0 Age-related osteoporosis without current pathological fracture; M19.90 Unspecified osteoarthritis, unspecified site; R40.2422 Glasgow coma scale score 9-12, at arrival to emergency department; Z21 Asymptomatic human immunodeficiency virus [HIV] infection status; Z79.4 Long term (current) use of insulin; Z88.0 Allergy status to penicillin; Z88.1 Allergy status to other antibiotic agents; Z92.21 Personal history of antineoplastic chemotherapy
CPT/HCPCS: 36600; 51702; 70450; 71045; 80048; 80053; 80061; 80307; 81001; 82010; 82550; 82805; 82948; 83036; 83605; 83735; 84100; 84443; 84484; 85007; 85025; 85027; 85610; 85730; 87040; 87086; 87186; 87205; 87641; 93005; 93306; 96361; 96365; 96367; 96375; J0696; J1160; J1644; J1815; J1817; J1956; J7030; J7042; J7050; J7120